=== PATIENT | male | born 1945 | race Two or more races ===

== ENCOUNTER 2016-05-26 06:57 | Day surgery (SDC) | payer MEDICARE, OTHER ==
[2016-05-22 10:24] VITALS: BMI 39.0
[~2016-05-26 06:57] MED LIST: LACTATED RINGERS 1,000 ML IV ONE
[2016-05-26 07:18] VITALS: TEMP 96.6
[2016-05-26] MEDS ORDERED: LACTATED RINGERS 1,000 ML IV ONE ×2 (07:33)
[2016-05-26 07:34] LABS: Glucose,Whole Blood 143 mg/dL (75-99)
[2016-05-26] MEDS ORDERED: LIDOCAINE 1% INJ 10MG/ML (20 ML MDV) ONE (07:38)
[2016-05-26] MEDS ORDERED: PROPOFOL 10 MG/ML 20 ML VIAL IV ONE (07:38)
--- NOTE | 2016-05-26 07:56 | P.GSHP ---
History of Present Illness H&P Date: 05/26/16 Chief Complaint: Screening colonoscopy This a 70-year-old male referred from Soumya Aiken PA-C. He presents today for screening colonoscopy. His last colonoscopy was over 7 years ago. He states he had 2 colonic polyps that time. - Constitutional Constitutional: Reports as per HPI Past Medical History Past Medical History: Diabetes Mellitus, Eye Disorder, Hypertension, Osteoarthritis (OA) Additional Past Medical History / Comment(s): Has cataracts, arthritis in right foot, "damage to lung due to coughing fits 15-20 yrs ago" History of Any Multi-Drug Resistant Organisms: None Reported Additional Past Surgical History / Comment(s): Colonoscopy, wisdom teeth extraction. Past Anesthesia/Blood Transfusion Reactions: No Reported Reaction Past Psychological History: No Psychological Hx Reported Smoking Status: Never smoker Past Alcohol Use History: Rare Past Drug Use History: None Reported - Past Family History Mother Family Medical History: No Reported History Medications and Allergies Home Medications Medication Instructions Recorded Confirmed Type Aspirin [Adult Low Dose Aspirin EC] 81 mg PO DAILY 05/22/16 05/22/16 History Chlorthalidone 25 mg PO DAILY 05/22/16 05/22/16 History Cholecalciferol [Vitamin D3] 1,000 unit PO DAILY 05/22/16 05/22/16 History Cyanocobalamin (Vitamin B-12) 1,000 mcg PO DAILY 05/22/16 05/22/16 History [Vitamin B-12] Folic Acid 0.8 mg PO DAILY 05/22/16 05/22/16 History Insulin Glargine [Lantus] 45 unit SQ QAM 05/22/16 05/22/16 History Losartan [Cozaar] 50 mg PO DAILY 05/22/16 05/22/16 History Pravastatin Sodium [Pravachol] 20 mg PO DAILY 05/22/16 05/22/16 History Verapamil HCl [Verapamil ER] 240 mg PO DAILY 05/22/16 05/22/16 History metFORMIN HCL 2,000 mg PO BID 05/22/16 05/22/16 History Allergies Allergy/AdvReac Type Severity Reaction Status Date / Time lisinopril [From Zestril] Allergy Unknown Verified 05/22/16 10:08 oseltamivir [From Tamiflu] Allergy Unknown Verified 05/22/16 10:07 Surgical - Exam Vital Signs Pulse Resp BP Pulse Ox 93 18 168/90 96 05/26/16 07:12 05/26/16 07:12 05/26/16 07:12 05/26/16 07:12 - General well developed, no distress - Eyes PERRL - ENT normal pinna - Neck no masses - Respiratory normal expansion - Cardiovascular Rhythm: regular - Abdomen Abdomen: soft, non tender Results - Labs Abnormal Lab Results - Last 24 Hours (Table) 05/26/16 Range/Units 07:30 POC Glucose (mg/dL) 143 H (75-99) mg/dL Assessment and Plan Plan: We'll perform screening colonoscopy.
--- NOTE | 2016-05-26 08:08 | P.OP ---
Date of Procedure: 05/26/16 Preoperative Diagnosis: Screening colonoscopy Postoperative Diagnosis: Normal colon Procedure(s) Performed: Colonoscopy Anesthesia: MAC Surgeon: Tomas Cedillo Pathology: none sent Condition: stable Disposition: PACU Description of Procedure: PROCEDURE: The patient was placed on the endoscopy table in the lateral position. Digital rectal examination was performed which revealed no abnormalities. The prostate was symmetrical without nodules. Flexible colonoscope was then placed in the patient's anus and passed throughout the entire colon. The ileocecal valve was visualized. The cecum, ascending, transverse, descending and sigmoid colon were normal. The rectum was normal as well. There were no masses, polyps or diverticula noted in the entire colon. SUMMARY OF FINDINGS: Normal colonoscopy.
[2016-05-26 08:11] VITALS: RESP 16
[2016-05-26 08:24] VITALS: BP 137/87; PULSE 75
[2016-05-26 09:00] LABS: Glucose,Whole Blood 143 mg/dL (75-99)
== END 2016-05-26 09:06 | disposition home or self-care (01) ==
LOC: ORWHC2ENDO 06:57
PROVIDERS: ATTEND Surgery
DX: Z12.11 Encounter for screening for malignant neoplasm of colon (principal); Z86.010 Personal history of colon polyps; E11.9 Type 2 diabetes mellitus without complications; Z79.4 Long term (current) use of insulin; Z79.84 Long term (current) use of oral hypoglycemic drugs; I10 Essential (primary) hypertension; M19.90 Unspecified osteoarthritis, unspecified site; E78.5 Hyperlipidemia, unspecified; Z79.82 Long term (current) use of aspirin; Z79.899 Other long term (current) drug therapy; Z88.8 Allergy status to other drugs, medicaments and biological substances
CPT/HCPCS: J2001; J2704; G0105

== ENCOUNTER → 2017-10-19 | Outpatient (CLI) | payer MEDICARE, OTHER | END | disposition home or self-care (01) | LOC: LABPAT 11:15 | PROVIDERS: ATTEND Orthopaedic Surgery | DX: Z01.812 Encounter for preprocedural laboratory examination (principal) | CPT/HCPCS: 87070 ==

== ENCOUNTER → 2017-10-20 | Outpatient (CLI) | payer MEDICARE, OTHER ==
[~2017-10-20] MED LIST changes: -LACTATED RINGERS 1,000 ML IV ONE; +REGADENOSON 0.4 MG/5 ML SYRINGE IV ONE
--- NOTE | 2017-10-20 11:41 | NM ---
EXAMINATION TYPE: NM stress lexiscan cardiolite DATE OF EXAM: 10/20/2017 COMPARISON: NONE HISTORY: Abnormal EKG TECHNIQUE: After the intravenous administration of 10.7 mCi Tc 99m Sestamibi - Cardiolite resting SP ECT images acquired 45 minutes post injection. The patient received 0.4mg Lexiscan, 25.2 mCi Tc 99m Sestamibi - Stress images obtained [address] injection FINDINGS: Review of stress and rest SPECT images demonstrates decreased radio pharmaceutical uptake along the i nferior wall of left ventricle on stress as compared to rest images. Gated analysis shows normal wal l motion with an estimated left ventricular ejection fraction of 57 %. 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 A Yellow level critical message alert has been initiated for Kayla Lal DO via the [facility] Critical Results System on 10/20/2017 11:38 AM. This message alert has been sent to Kayla trevino DO via the preferences provided by the clinician for the receipt of Radiology Critical Findings. Message ID [id number].
--- NOTE | 2017-10-20 13:31 | EST ---
EXERCISE STRESS DATE OF SERVICE: 10/20/2017 AGE: 72 SEX: Male HT: 71" WT: 280 pounds PROTOCOL: Lexiscan Cardiolite STAGE: DURATION OF EXERCISE: HEART RATE REST: 87 BLOOD PRESSURE REST: 191/88 MAXIMUM HEART RATE ACHIEVED: 97 MAXIMUM BLOOD PRESSURE: 216/86 85% MPHR: 127 100% MPHR: 149 METS: INDICATIONS: Chest pain. CLINICAL INFORMATION: STRESS DATA: Pretesting physical examination showed a heart rate of 87, pressure is 191/88 mmHg. Baseline EKG showed sinus rhythm. Lexiscan 0.4 mg was given over 15 seconds per protocol. The max heart rate was 97 beats per minute and maximum pressure was 216/86 mmHg. Clinically the patient did not have any symptoms of chest pain or discomfort and the EKG did not show any significant ST or T wave abnormalities concerning for ischemia. CONCLUSION: 1. Nondiagnostic electrocardiogram stress testing in response to Lexiscan. 2. Please follow up on the Cardiolite portion on a separate report from the radiology department. MMODL / IJN: [id number] /
== END | disposition home or self-care (01) ==
LOC: RADNMMAIN 10-19 09:58
PROVIDERS: ATTEND Family Medicine
DX: R94.31 Abnormal electrocardiogram [ECG] [EKG] (principal)
CPT/HCPCS: 93017; 78452; A9500; J2785

== ENCOUNTER → 2017-11-01 | Outpatient (CLI) | payer MEDICARE, OTHER ==
[2017-11-01 11:57] LABS: HCT 43.9 % (39.0-53.0); HGB 14.6 gm/dL (13.0-17.5); MCH 29.1 pg (25.0-35.0); MCHC 33.2 g/dL (31.0-37.0); MCV 87.7 fL (80.0-100.0); Platelet Count 239 k/uL (150-450); RBC 5.01 m/uL (4.30-5.90); WBC 7.8 k/uL (3.8-10.6)
[2017-11-01 12:08] LABS: Anion Gap 9 mmol/L; Blood Urea Nitrogen 16 mg/dL (9-20); Carbon Dioxide 30 mmol/L (22-30); Chloride 101 mmol/L (98-107); Glucose 131 mg/dL (74-99); Magnesium 1.5 mg/dL (1.6-2.3); Potassium 4.3 mmol/L (3.5-5.1); Sodium 140 mmol/L (137-145)
== END | disposition home or self-care (01) ==
LOC: LABPAT 11:19
PROVIDERS: ATTEND Internal Medicine Interventional Cardiology
DX: Z01.812 Encounter for preprocedural laboratory examination (principal); E11.9 Type 2 diabetes mellitus without complications
CPT/HCPCS: 36415; 80051; 82565; 82947; 83735; 84520; 85027

== ENCOUNTER → 2017-12-06 | Outpatient (CLI) | payer MEDICARE, OTHER ==
[2017-12-06 12:17] LABS: HCT 43.6 % (39.0-53.0); HGB 14.8 gm/dL (13.0-17.5); MCH 29.7 pg (25.0-35.0); MCHC 33.9 g/dL (31.0-37.0); MCV 87.6 fL (80.0-100.0); Mean Platelet Volume 7.2; Platelet Count 227 k/uL (150-450); RBC 4.97 m/uL (4.30-5.90); RDW 12.8 % (11.5-15.5); WBC 7.4 k/uL (3.8-10.6)
[2017-12-06 12:50] LABS: Anion Gap 10 mmol/L; Blood Urea Nitrogen 10 mg/dL (9-20); Carbon Dioxide 30 mmol/L (22-30); Chloride 100 mmol/L (98-107); Glucose 158 mg/dL (74-99); Magnesium 1.4 mg/dL (1.6-2.3); Potassium 4.1 mmol/L (3.5-5.1); Sodium 140 mmol/L (137-145)
== END | disposition home or self-care (01) ==
LOC: LABPAT 10:53
PROVIDERS: ATTEND Internal Medicine Interventional Cardiology
DX: Z01.812 Encounter for preprocedural laboratory examination (principal)
CPT/HCPCS: 36415; 80051; 82565; 82947; 83735; 84520; 85027

== ENCOUNTER 2017-12-22 06:06 | Day surgery (SDC) | payer MEDICARE, OTHER ==
[2017-12-15 14:48] VITALS: BMI 39.7
[~2017-12-22 06:06] MED LIST changes: +ALPRAZolam 0.25 MG TAB PO PRN; +ASPIRIN 325 MG TAB PO ONE; +NITROGLYCERIN SL TABS 0.4 MG TAB SUBLINGUAL PRN; -REGADENOSON 0.4 MG/5 ML SYRINGE IV ONE; +SODIUM CHLORIDE 0.9% 1,000 ML in EMPTY BAG 1 BAG IV ONE
[2017-12-22 07:10] LABS: Glucose,Whole Blood 161 mg/dL (75-99)
[2017-12-22] MEDS ORDERED: SODIUM CHLORIDE 0.9% 1,000 ML IV ONE (07:18)
[2017-12-22] MEDS ORDERED: diphenhydrAMINE 50 MG/ML 1 ML VIAL ONE (10:06)
[2017-12-22] MEDS ORDERED: MIDAZOLAM 2 MG/2 ML VIAL ONE (10:06)
[2017-12-22] MEDS ORDERED: LIDOCAINE 1% INJ 10MG/ML (20 ML MDV) ONE (10:06)
[2017-12-22] MEDS ORDERED: VERAPAMIL 2.5 MG/ML 2 ML AMP ONE (10:06)
[2017-12-22] MEDS ORDERED: MIDAZOLAM 2 MG/2 ML VIAL IV ONE (10:56)
[2017-12-22] MEDS ORDERED: diphenhydrAMINE 50 MG/ML 1 ML VIAL IVP ONE (10:56)
[2017-12-22] MEDS ORDERED: LIDOCAINE 1% INJ 10MG/ML (20 ML MDV) SQ ONE (10:58)
[2017-12-22] MEDS ORDERED: HEPARIN SODIUM 1,000 UN/ML (10ML VL) ONE (11:02)
[2017-12-22] MEDS ORDERED: VERAPAMIL SYRINGE (5 MG/10 ML) INTRAARTER ONE (11:05)
[2017-12-22] MEDS ORDERED: BIVALIRUDIN 250 MG in SODIUM CHLORIDE 0.9% 50 ML IV ONE (11:24)
[2017-12-22] MEDS ORDERED: BIVALIRUDIN BOLUS 250 MG/50 ML IV ONE (11:24)
[2017-12-22] MEDS ORDERED: IOPAMIDOL-370 100ML BTL INJ ONE ×2 (11:26→11:51)
[2017-12-22] MEDS ORDERED: NITROGLYCERIN 1000MCG/10ML SYRINGE INTRACORON ONE (11:42)
[2017-12-22] MEDS ORDERED: TICAGRELOR 90 MG TAB ONE (11:47)
[2017-12-22] MEDS ORDERED: TICAGRELOR 90 MG TAB PO ONE (11:51)
[2017-12-22] MEDS ORDERED: ZOLPIDEM 5 MG TAB PO PRN (12:01)
[2017-12-22] MEDS ORDERED: ATROPINE SULFATE 0.1 MG/ML 10ML SYRINGE IV PRN (12:01)
[2017-12-22] MEDS ORDERED: RX INFO: IV CONTRAST WAS GIVEN 1 EACH MISC MISCELLANE PRN (12:01)
[2017-12-22] MEDS ORDERED: MAG HYDROX/AL HYDROX/SIMETH 30 ML CUP PO PRN (12:01)
[2017-12-22] MEDS ORDERED: NITROGLYCERIN SL TABS 0.4 MG TAB SUBLINGUAL PRN (12:01)
[2017-12-22] MEDS: SODIUM CHLORIDE 0.9% 1,000 ML IV SCH (15:46)
[2017-12-22 17:01] LABS: Glucose,Whole Blood 180 mg/dL (75-99)
--- NOTE | 2017-12-22 18:22 | CC ---
CARDIAC CATHETERIZATION REPORT DATE OF SERVICE: 12/22/2017. PROCEDURE: 1. Left heart catheterization and coronary angiography. 2. PTCA and stenting of mid circumflex coronary artery with a drug-eluting stent. PERFORMED BY: Dr. Osmar Agosto. SEDATION: Moderate conscious sedation time was 53 minutes. Patient was administered Versed Benadryl and his oxygen saturation, hemodynamics and EKG were monitored closely. CLINICAL INFORMATION: Mr. Vel Wyatt is a 72-year-old gentleman with a history of type 2 diabetes, hypertension, hyperlipidemia, and a recent abnormal stress test with inferior wall ischemia. He was advised coronary angiography after due discussion regarding risks, benefits, options and rationale. PROCEDURE NOTE: Under local anesthesia and strict aseptic precautions, a 6-Tristanian introducer was placed in the right radial artery. I used a 3.5 left Kellie and a 4.0 right Kellie 5-Tristanian catheters to perform coronary angiography. Subsequently, I checked LV pressures with a pigtail catheter but did not perform an LV-gram. Using a JL 3.5 using a guide catheter, I performed selective coronary angiography of the left coronary artery. I used a Whisper wire to cross the lesion. Wire was kept distally. Predilatation was performed using an 8 mm 2.25 caliber NC Trek balloon. Subsequently I deployed a 2.5 caliber 8 mm long Xience stent. The patient had an excellent angiographic result. He had no significant EKG changes and mild chest discomfort. Excellent angiographic result was achieved. He received Angiomax bolus and infusion as per protocol. He also received 180 mg of Brilinta. The sheath was taken out and TR band applied per protocol and he was sent to the room in a stable condition. The saturation of the fingers of the right hand was 94%. CARDIAC CATH FINDINGS: The left ventricle end-diastolic pressure was about 12 mmHg. There was no gradient across the aortic valve. CORONARY ANGIOGRAPHY FINDINGS: RIGHT CORONARY ARTERY: This is a large dominant vessel, has no significant disease in the proximal and midportion. There is moderate calcification. Distally bifurcates into PDA and PLV. The PLV and PDA are both small in caliber relatively. PDA is diffusely diseased with multiple 60-70 percent lesions throughout. However, the disease is diffuse and not focal and extensive. The PLV also has diffuse disease, but no stenosis of more than 50% is noted. The dominant RCA therefore has branch disease involving the branches and calcification. LEFT MAIN CORONARY ARTERY: Short patent vessel free of significant disease that bifurcates into LAD and circumflex. LEFT ANTERIOR DESCENDING CORONARY ARTERY: Good caliber vessel extends along the anterior wall, gives off a good-sized septal and diagonal branches. After the first diagonal branch, there is about a 40 to 45% calcified area of narrowing noted. In multiple projections, I looked at this and does not appear to be a critical lesion. There is moderate calcification but the lesion is no more than 45%. Distally the caliber of the vessel improves. It runs all the way to the apex and curves over the apex to supply the inferoapical portion of left ventricle. LEFT POSTERIOR CIRCUMFLEX CORONARY ARTERY: Technically, nondominant vessel. Gives off 2 obtuse marginal branches and after the second obtuse marginal, there is an eccentric 90% stenosis which continues distally and gives off a 3rd obtuse marginal and then the groove branch. The mid circumflex therefore has a 90% calcified lesion. Left ventriculogram was not performed. The left ventricle end-diastolic pressure was 8- 10 mmHg without any gradient across aortic valve. PCI was performed with a drug-eluting stent. A 2.5 caliber 8 mm Xience stent was deployed. Excellent angiographic result without complication was achieved. Results were discussed with the patient and family and he was sent to the room in a stable condition. MMODL / IJN: [id number] /
--- NOTE | 2017-12-22 18:23 | LTR ---
DATE OF SERVICE: 12/22/[address] Lal: Thank you for the opportunity to participate in the care of Mr. Wyatt. Please find enclosed my detailed report for records. This gentleman has a mid circumflex lesion which was stented with a drug-eluting stent. The diffuse disease in PDA branch of RCA will be treated medically. LAD has moderate noncritical disease. We will have to continue aggressive medical therapy with dual antiplatelet therapy as well. Thank you for your referral. Please call for questions. With kind personal regards, Sincerely yours, MMODL / IJN: [id number] /
[2017-12-22] MEDS: MAGNESIUM OXIDE 400 MG TAB PO SCH (20:04)
[2017-12-22] MEDS: METOPROLOL TARTRATE 25 MG TAB PO SCH (20:04)
[2017-12-22] MEDS ORDERED: ATORVASTATIN 80 MG TAB PO SCH (21:00)
[2017-12-22 21:12] LABS: Glucose,Whole Blood 243 mg/dL (75-99)
[2017-12-23] MEDS: SODIUM CHLORIDE 0.9% 1,000 ML IV SCH (00:53)
[2017-12-23 06:12] LABS: Glucose,Whole Blood 192 mg/dL (75-99)
[2017-12-23 06:46] LABS: Basophils % (A) 0 %; Eosinophils # (A) 0.2 k/uL (0-0.7); Eosinophils % (A) 2 %; HCT 38.7 % (39.0-53.0); HGB 13.1 gm/dL (13.0-17.5); Lymphocytes # (A) 1.9 k/uL (1.0-4.8); Lymphocytes % (A) 28 %; MCH 29.3 pg (25.0-35.0); MCHC 33.7 g/dL (31.0-37.0); MCV 86.7 fL (80.0-100.0); Mean Platelet Volume 6.8; Monocytes # (A) 0.3 k/uL (0-1.0); Monocytes % (A) 5 %; Neutrophils # (A) 4.3 k/uL (1.3-7.7); Neutrophils % (A) 63 %; Platelet Count 188 k/uL (150-450); RBC 4.46 m/uL (4.30-5.90); WBC 6.9 k/uL (3.8-10.6)
[2017-12-23 06:57] LABS: Anion Gap 7 mmol/L; Blood Urea Nitrogen 16 mg/dL (9-20); Calcium 8.5 mg/dL (8.4-10.2); Carbon Dioxide 29 mmol/L (22-30); Chloride 104 mmol/L (98-107); Glucose 172 mg/dL (74-99); Potassium 4.5 mmol/L (3.5-5.1); Sodium 140 mmol/L (137-145)
[2017-12-23 07:29] VITALS: BP 136/79; PULSE 69; RESP 16; TEMP 97.4
[2017-12-23] MEDS: METOPROLOL TARTRATE 25 MG TAB PO SCH (08:44)
[2017-12-23] MEDS: MAGNESIUM OXIDE 400 MG TAB PO SCH (08:45)
[2017-12-23] MEDS ORDERED: CHOLECALCIFEROL 1,000 UNIT TAB PO SCH (09:00)
[2017-12-23] MEDS ORDERED: FOLIC ACID 1 MG TAB PO SCH (09:00)
[2017-12-23] MEDS ORDERED: ASPIRIN 81 MG PO SCH (09:00)
[2017-12-23] MEDS ORDERED: CLOPIDOGREL 75 MG TAB PO SCH (09:00)
[2017-12-23] MEDS ORDERED: LOSARTAN 50 MG TAB PO SCH (09:00)
[2017-12-23] MEDS ORDERED: CHLORTHALIDONE 25 MG TAB PO SCH (09:00)
[2017-12-23] MEDS ORDERED: INSULIN DETEMIR 100 UNIT/ML 10 ML VIAL SQ SCH (09:00)
--- NOTE | 2017-12-23 14:17 | DS ---
DISCHARGE SUMMARY DATE OF ADMISSION: 12/22/2017 DATE OF DISCHARGE: 12/23/2017, DIAGNOSES: 1. Unstable angina. 2. Hypertension. 3. Hypercholesterolemia. 4. Type 2 diabetes mellitus. 5. Status post PCI of circumflex. Mr. Wyatt was brought into the hospital electively for cardiac catheterization because of abnormal stress test and significant risk factors that include diabetes, hypertension, hyperlipidemia. Cardiac cath revealed that he had diffuse disease in PDA branch of RCA for which I advised medical therapy but circumflex have significant stenosis, underwent stenting with excellent result. Postprocedure course is unremarkable. He is doing well without symptoms. Vitals are stable. S1, S2 heard normally. Lungs are clear. Abdomen and lower extremity exam unchanged. Right radial cath site is clean and dry with a good pulse. PLAN: Increase activity and discharge him. Discharge instructions regarding activity, diet and medications including dual antiplatelet therapy were given to the patient. He will see me on 12/29/2017. Discharge instructions regarding activity, diet and medications were given. MMODL / IJN: [id number] /
== END 2017-12-23 09:51 | disposition home or self-care (01) ==
LOC: CATHCVL 06:06 → 6SEL 11:52 → CATHCVL 12-23 09:51
PROVIDERS: ATTEND Internal Medicine Interventional Cardiology
DX: I25.110 Atherosclerotic heart disease of native coronary artery with unstable angina pectoris (principal); R00.1 Bradycardia, unspecified; I10 Essential (primary) hypertension; E78.00 Pure hypercholesterolemia, unspecified; E11.9 Type 2 diabetes mellitus without complications; R94.39 Abnormal result of other cardiovascular function study; M17.12 Unilateral primary osteoarthritis, left knee; Z82.49 Family history of ischemic heart disease and other diseases of the circulatory system; Z79.82 Long term (current) use of aspirin; Z79.4 Long term (current) use of insulin; Z79.899 Other long term (current) drug therapy; Z88.8 Allergy status to other drugs, medicaments and biological substances
CPT/HCPCS: 93458; 80048; 85025; C9600; C1769 ×2; C1887; C1725; C1894; C1874; J2250; J1200; J2001; J0583; J1644; Q9967

== ENCOUNTER → 2019-01-31 | Outpatient (CLI) | payer MEDICARE | END | disposition home or self-care (01) | LOC: LABPAT 14:25 | PROVIDERS: ATTEND Orthopaedic Surgery | DX: Z01.812 Encounter for preprocedural laboratory examination (principal) | CPT/HCPCS: 87070 ==

== ENCOUNTER 2019-02-14 08:49 | Day surgery (SDC) | payer MEDICARE ==
[2019-02-13 09:02] VITALS: BMI 38.3
--- NOTE | 2019-02-13 10:20 | HP ---
HISTORY AND PHYSICAL CHIEF COMPLAINT: Left knee pain. HISTORY OF PRESENT ILLNESS: Patient is a 73-year-old retired gentleman who presents with progressive left knee pain secondary to osteoarthrosis despite extensive conservative previous treatment. He has tried medications in addition to injections without much relief. He notes daily pain that limits him significantly. PAST MEDICAL HISTORY: Significant for coronary artery disease, hypertension, and type 2 diabetes. PAST SURGICAL HISTORY: Significant for cardiac stent placement. CURRENT MEDICATIONS: 1. Viagra. 2. Verapamil. 3. Pro statin. 4. Metformin. 5. Aspirin. He notes allergies to TAMIFLU and ZESTRIL. FAMILY HISTORY: Significant for cancer. SOCIAL HISTORY: Negative for current tobacco or alcohol use. 16 POINT REVIEW OF SYSTEMS: Otherwise reviewed and is noncontributory. PHYSICAL EXAMINATION: On examination, the patient is approximately 5 foot 11, 275 pounds of endomorphic habitus. HEENT: Exam is nonfocal. NECK: Supple. He has painless passive motion of the left hip. Straight leg raise is negative. Active motion left knee, -12 to 95 degrees of flexion. He is tender about the medial joint line. He has a mild effusion. Collaterals are stable, Mayo is negative, Shanna's is equivocal. He has genu varum alignment. His distal neurovascular exam appears intact in the left lower extremity. IMPRESSION: 1. Left knee severe medial patellofemoral compartment osteoarthrosis. 2. History of coronary artery disease. 3. Ljz-jgqyois-fuwqumqzh diabetes. 4. Increased body mass index. RECOMMENDATION: I talked to the patient at length regarding his condition along with treatment options. At this point, he is quite symptomatic and opts to proceed with surgery. Will plan to proceed with left total knee arthroplasty. Will institute DVT prophylaxis postoperatively. Risks and benefits were discussed at length in layman's terms. MMODL / IJN: [id number] /
[~2019-02-14 08:49] MED LIST changes: +ACETAMINOPHEN TAB 500 MG TAB PO ONE; -ALPRAZolam 0.25 MG TAB PO PRN; -ASPIRIN 325 MG TAB PO ONE; +DEXAMETHASONE SOD PHOSPHATE 10 MG/ML 1 ML VIAL IV ONE; +HYDROmorphone 0.5 MG/0.5 ML SYRINGE IVP PRN; +MELOXICAM 7.5 MG TAB PO ONE; +MIDAZOLAM 2 MG/2 ML VIAL IV PRN; -NITROGLYCERIN SL TABS 0.4 MG TAB SUBLINGUAL PRN; +ONDANSETRON 4 MG/2 ML VIAL IVP ONE; -SODIUM CHLORIDE 0.9% 1,000 ML in EMPTY BAG 1 BAG IV ONE; +TRANEXAMIC ACID 1,000 MG in SODIUM CHLORIDE 0.9% 100 ML IVPB ONE; +ceFAZolin 3 GM in SODIUM CHLORIDE 0.9% 100 ML IVPB ONE
[2019-02-14 09:55] LABS: Glucose,Whole Blood 183 mg/dL (75-99)
[2019-02-14] MEDS: LACTATED RINGERS 1,000 ML IV SCH (09:58)
[2019-02-14] MEDS ORDERED: LIDOCAINE 1% 20 ML VIAL (10MG/ML) FOR IV START INTRADERMA ONE (09:58)
[2019-02-14] MEDS ORDERED: ROPIVACAINE 246.25 MG, EPINEPHrine 0.5 MG, KETOROLAC 30 MG, cloNIDine HCL/PF 80 MCG, WA... MISCELLANE ONE ×5 (10:02)
[2019-02-14] MEDS ORDERED: MIDAZOLAM 2 MG/2 ML VIAL IV ONE (10:11)
[2019-02-14] MEDS ORDERED: fentaNYL (PF) 50 MCG/ML 2 ML AMP IV ONE (10:11)
[2019-02-14] MEDS ORDERED: diphenhydrAMINE 50 MG/ML 1 ML VIAL ONE (10:57)
[2019-02-14] MEDS ORDERED: TRANEXAMIC ACID 1,000 MG/10 ML VIAL ONE (10:57)
[2019-02-14] MEDS ORDERED: ePHEDrine SULFATE/0.9% NACL/PF 50 MG/5 ML SYRINGE IV ONE (10:57)
[2019-02-14] MEDS ORDERED: MIDAZOLAM 2 MG/2 ML VIAL ONE (10:57)
[2019-02-14] MEDS ORDERED: fentaNYL (PF) 50 MCG/ML 2 ML AMP ONE (10:57)
[2019-02-14] MEDS ORDERED: SODIUM CHLORIDE 0.9% 100 ML BAG ONE (10:57)
[2019-02-14] MEDS ORDERED: ROPIVACAINE 0.2%-NS ON-Q PUMP 1,090 MG, EMPTY PAIN BALL 1 EACH MISCELLANE PRN (10:58)
--- NOTE | 2019-02-14 11:01 | P.ANPRN ---
Procedure Note - Anesthesia - Nerve Block Performed Left Adductor Canal Infusion Time Out Performed: Yes Date of Procedure: 02/14/19 Procedure Start Time: 10:11 Procedure Stop Time: 10:30 Location of Patient: PreOp Indication: Acute Post-Operative Pain, Requested by Surgeon Specifically requested for management of pain by DrPancho: August Schwarz Sedation Type: Sedate with meaningful contact maintained Preparation: Sterile Prep Position: Supine Catheter Depth at Skin (cm): 7 Catheter: Indwelling Needle Types: Pajunk Needle Gauge: 18 Ultrasound used to visualize needle placement: Yes Ultrasound used to observe medication spread: Yes Injectate: 0.5% Ropivacaine (see comment for volume) (20 cc) Blood Aspirated: No Pain Paresthesia on Injection Noted: No Resistance on Injection: Normal Image Stored and Saved: Yes Events: Other (see comment) (First U/S machind did not provide a good image so a backup machine was used resulting in some delay.)
[2019-02-14] MEDS ORDERED: ceFAZolin 3,000 MG in SODIUM CHLORIDE 0.9% IRRIGATIO 3,000 ML IRRIGATION ONE (11:39)
[2019-02-14] MEDS ORDERED: LACTATED RINGERS 1,000 ML IV ONE (12:37)
[2019-02-14] MEDS ORDERED: ONDANSETRON 4 MG/2 ML VIAL IVP PRN (13:01)
[2019-02-14] MEDS ORDERED: ACETAMINOPHEN TAB 325 MG TAB PO PRN (13:01)
[2019-02-14] MEDS ORDERED: HYDROcodone/APAP 5-325MG 1 EACH TAB PO PRN ×2 (13:01)
[2019-02-14] MEDS ORDERED: traMADol 50 MG TAB PO PRN (13:01)
[2019-02-14] MEDS ORDERED: MAGNESIUM HYDROXIDE 2,400 MG/10 ML CUP PO PRN (13:01)
[2019-02-14] MEDS ORDERED: NALOXONE 0.4 MG/ML 1 ML VIAL IV PRN (13:01)
[2019-02-14] MEDS ORDERED: HYDROmorphone 0.5 MG/0.5 ML SYRINGE IVP PRN (13:01)
--- NOTE | 2019-02-14 13:29 | P.OP ---
Date of Procedure: 02/14/19 Preoperative Diagnosis: Left knee severe tricompartmental osteoarthrosis Postoperative Diagnosis: Same Procedure(s) Performed: Left total knee arthroplastycementedposterior stabilized Implants: Depuy Attune size 7 cemented femoral component, size 7 cemented tibial component, 9 mm articular surface, 38 mm cemented patellar component. This is a posterior stabilized implant. A 50 mm tibial stem was placed as well. Anesthesia: MAC, regional, local Surgeon: August Schwarz Tool Carrier #1: Mason Rajput Estimated Blood Loss (ml): 50 Pathology: other (Bone fragments) Condition: stable Disposition: PACU Indications for Procedure: The patient's a 73 year-old male who presents with progressive left knee pain secondary to osteoarthrosis despite conservative measures. A discussion of the risks and benefits of operative intervention versus continued conservative measures was made with patient. She opted to proceed with surgery. Operative risks to include infection, neurovascular injury, fracture, development of blood clots, possible component loosening, possible component failure and need for subsequent procedures was discussed. Informed consent was obtained. Operative Findings: As below Description of Procedure: The patient was brought to the operating room, and after induction of spinal anesthesia the left lower extremity was prepped and draped in a normal fashion. The tourniquet was inflated to 270 mm marker. A longitudinal incision extending 3 finger breaths above the superior pole of patella extending to the medial aspect the tibial tubercle was then made. The skin and subcutaneous tissues were divided sharply. Electrocautery was used for hemostasis. A medial parapatellar arthrotomy was performed. The medial soft tissues to include the superficial and deep portions of the medial collateral ligament were elevated subperiosteally. The patella was everted. A portion of the retropatellar fat pad was excised sharply. The anterior cruciate ligament was sacrificed. Blunt retractors were placed. A starting hole was made in the distal femur 1 cm anterior to the posterior cruciate ligament origin. An intramedullary femoral guide was then inserted planning on 5 valgus distal cut with 9 mm distal resection. The cutting block was pinned in place. The distal cut was then made. The posterior referencing sizing guide was utilized. I felt size 7 was most appropriate. 3 of external rotation was built into the system and verified off the trans-epicondylar axis and the posterior condyles. The cutting block was pinned in place. The anterior, posterior, and chamfer cuts then made. Bone fragments were removed. The intercondylar guide was placed and the notch cut was made with a sagittal saw. The bone block was removed in one fragment. The trial component was then placed. There is good anterior to posterior and medial to lateral fit. The distal peg holes were drilled. The trial component was removed. Attention was then paid towards preparing the proximal femur. An extra medullary guide was utilized in line with the tibial shaft and second metatarsal distally. I planned on 2 mm resection from the medial compartment. The cutting block was pinned in place. The proximal tibial cut was then made. The bone was removed in one fragment. The remnants of the medial and lateral menisci were excised at the capsular junction with electrocautery. The tibia sized most appropriately at size 7. The trial femoral and tibial components were placed along with a 9 mm articular surface. I was able to obtain full flexion and extension with internal and external rotation. After several flexion and extension cycles, the tibial rotation was marked with electrocautery line with the medial one third of the tibial tubercle. Attention was then paid towards preparing the patella. A patella reamer was utilized taking stem to 14 mm of bone stock. A good flush cut was made. The patella sized most appropriately 38 mm. The peg holes were drilled. The trial components placed. I had good patellofemoral tracking with no hands technique. The trial components were then removed. The tibia was prepared in the appropriate rotation with appropriate drill and keel punch. The posterior osteophytes were removed with a curved osteotome. The flexion and extension gaps were checked and felt to be symmetric at 9 mm. A trial components were then removed. The posterior soft tissues were injected with ropivacaine. The bony surfaces were prepared with pulsatile lavage and dried. The tibial component was then cemented place was fully seated. Excess cement was removed. The femoral component cemented place and was fully seated. Excess cement was removed. The trial 9 mm articular surface was placed and the knee was put in full extension. The patella component was cemented place. After the cement had sufficiently hardened, the knee was again taken through a range of motion. Again I was able to obtain full flexion and extension with varus and valgus stress. The trial 9 mm articular surface was removed and the final one inserted. This was fully seated. Care was taken to avoid any soft tissue interposition. Pulsatile lavage was again utilized. The medial parapatellar arthrotomy was closed with #2 Ethibond suture. The tourniquet was deflated with approximately 75 minutes total tourniquet time. Final hemostasis was obtained with the cautery. There was minimal bleeding therefore a deep drain was not placed. The subcutaneous tissues were reapproximated with interrupted 2-0 Vicryl sutures. The skin was reapproximated with 3-0 subcuticular strata fix suture. Skin tape and adhesive was applied. A sterile dressing was applied. The patient was awoken from sedation and transferred to recovery room in good condition. Blood loss was estimated at 50 mL. No complications were incurred. Sponge and needle counts were correct at the end of the case. Mike DAMON assisted during the major components of this case to include exposure, bone resection, implantation, and closure.
--- NOTE | 2019-02-14 14:01 | XR ---
EXAMINATION TYPE: XR knee limited LT DATE OF EXAM: 02/14/2019 CLINICAL HISTORY: Left knee pain and arthritis status post total knee replacement. TECHNIQUE: Portable AP and crosstable lateral views of the left knee are obtained immediately postop eratively. COMPARISON: None FINDINGS: Metallic hardware from total left knee arthroplasty is seen and appears satisfactory in al ignment and position. There is evidence of recent surgery with diffuse subcutaneous gas and soft tis eligio swelling extending laterally and superiorly. IMPRESSION: METALLIC HARDWARE FROM TOTAL LEFT KNEE ARTHROPLASTY IS SATISFACTORY IN ALIGNMENT.
[2019-02-14 14:21] LABS: Glucose,Whole Blood 209 mg/dL (75-99)
[2019-02-14] MEDS ORDERED: INSULIN ASPART (NovoLOG) 100 UNIT/ML VIAL SQ ONE (14:23)
[2019-02-14 18:31] LABS: Glucose,Whole Blood 316 mg/dL (75-99)
[2019-02-14 20:04] LABS: Glucose,Whole Blood 357 mg/dL (75-99)
[2019-02-14] MEDS: ceFAZolin 3 GM in SODIUM CHLORIDE 0.9% 100 ML IVPB SCH (20:14)
[2019-02-14] MEDS: INSULIN ASPART (NovoLOG) 100 UNIT/ML VIAL SQ SCH (20:14)
[2019-02-14] MEDS: MAGNESIUM OXIDE 400 MG TAB PO SCH (20:20)
[2019-02-14] MEDS: METOPROLOL TARTRATE 25 MG TAB PO SCH (20:21)
[2019-02-14] MEDS ORDERED: ATORVASTATIN 40 MG TAB PO SCH (21:00)
[2019-02-14] MEDS ORDERED: SENNOSIDES-DOCUSATE SODIUM 1 EACH TAB PO SCH (21:00)
[2019-02-15] MEDS: ceFAZolin 3 GM in SODIUM CHLORIDE 0.9% 100 ML IVPB SCH (02:00)
[2019-02-15 06:58] LABS: Glucose,Whole Blood 201 mg/dL (75-99)
[2019-02-15] MEDS ORDERED: INSULIN DETEMIR (LEVEMIR) 100 UNIT/ML SYR SQ SCH (07:00)
--- NOTE | 2019-02-15 07:16 | P.PN ---
Progress Note - Text 02/15 655am 73-year-old male status post total knee replacement by Dr. Schwarz. Patient has On-Q pump for postop pain control with a VAS of 3 solution running at 8 mL an hour. Plan to continue On-Q pump infusion
[2019-02-15] MEDS: LACTATED RINGERS 1,000 ML IV SCH (07:22)
[2019-02-15] MEDS ORDERED: metFORMIN 500 MG TAB PO SCH (07:30)
[2019-02-15] MEDS: METOPROLOL TARTRATE 25 MG TAB PO SCH (07:30)
[2019-02-15] MEDS: MAGNESIUM OXIDE 400 MG TAB PO SCH (07:31)
[2019-02-15 07:42] VITALS: BP 114/66; PULSE 68; RESP 16; TEMP 98
[2019-02-15 07:47] LABS: Basophils % (A) 0 %; Eosinophils % (A) 0 %; HCT 32.4 % (39.0-53.0); HGB 11.1 gm/dL (13.0-17.5); Lymphocytes # (A) 1.2 k/uL (1.0-4.8); Lymphocytes % (A) 12 %; MCH 30.8 pg (25.0-35.0); MCHC 34.2 g/dL (31.0-37.0); Monocytes # (A) 0.5 k/uL (0-1.0); Monocytes % (A) 5 %; Neutrophils # (A) 8.8 k/uL (1.3-7.7); Neutrophils % (A) 83 %; Platelet Count 228 k/uL (150-450); RDW 13.1 % (11.5-15.5); WBC 10.6 k/uL (3.8-10.6)
[2019-02-15] MEDS: INSULIN ASPART (NovoLOG) 100 UNIT/ML VIAL SQ SCH ×2 (08:01→12:04)
[2019-02-15] MEDS ORDERED: RIVAROXABAN 10 MG TAB PO SCH (09:00)
[2019-02-15] MEDS ORDERED: LOSARTAN 50 MG TAB PO SCH (09:00)
[2019-02-15] MEDS ORDERED: CHLORTHALIDONE 25 MG TAB PO SCH (09:00)
[2019-02-15] MEDS ORDERED: ASPIRIN 81 MG PO SCH (09:00)
--- NOTE | 2019-02-15 10:26 | P.PN ---
Subjective Progress Note Date: 02/15/19 Principal diagnosis: Status post left total knee arthroplasty Patient tolerated the bedside, he is resting comfortably. His done very well with therapy. His pain is well-controlled. Denies chest pain or shortness of breath. Objective - Vital Signs Vital signs: Vital Signs Temp 98.0 F 02/15/19 07:08 Pulse 68 02/15/19 07:08 Resp 16 02/15/19 07:08 BP 114/66 02/15/19 07:08 Pulse Ox 95 02/15/19 07:08 Intake & Output 02/14/19 02/15/19 02/15/19 18:59 06:59 18:59 Intake Total 1251 180 Output Total 50 Balance 1201 180 Weight 127.006 kg Intake: IV 1251 Oral 180 Output: Estimated Blood Loss 50 Other: Voiding Method Toilet # Voids 1 - Exam Left lower extremity: Incision is clean, dry, and intact. The exofin fusion tape is in good condition. There is minimal soft tissue swelling and ecchymosis surrounding the medial and lateral aspects of the incision. Calf is soft, no tenderness with palpation. Plantar flexion, dorsiflexion, EHL, FHL are intact. Sensory exam to light touch throughout the extremity is intact, dorsal pedis pulses 2+. - Labs CBC & Chem 7: 02/15/19 07:12 Labs: Abnormal Lab Results - Last 24 Hours (Table) 02/14/19 02/14/19 02/14/19 Range/Units 14:18 18:30 20:01 RBC (4.30-5.90) m/uL Hgb (13.0-17.5) gm/dL Hct (39.0-53.0) % Neutrophils # (1.3-7.7) k/uL POC Glucose (mg/dL) 209 H 316 H 357 H (75-99) mg/dL 02/15/19 02/15/19 Range/Units 06:56 07:12 RBC 3.60 L (4.30-5.90) m/uL Hgb 11.1 L (13.0-17.5) gm/dL Hct 32.4 L (39.0-53.0) % Neutrophils # 8.8 H (1.3-7.7) k/uL POC Glucose (mg/dL) 201 H (75-99) mg/dL Assessment and Plan Plan: Assessment: Postoperative day #1 status post left total knee arthroplasty Plan: Pain control, oral medication at discharge GI and DVT prophylaxis, Eliquis 2.5mg bid for 2 weeks Wound care instructions discussed Icing and elevating techniques discussed Home physical therapy and nursing after discharge Medical recommendations Plan for discharge home today Time with Patient: Less than 30
--- NOTE | 2019-02-15 10:27 | P.DS ---
Providers Date of admission: 02/14/2019 Expected date of discharge: 02/15/19 Attending physician: August Schwarz Primary care physician: Kayla Lal Hospital Course: Date of admission: 02/14/2019 Date of discharge: 02/15/2019 Admission diagnosis: Status post left total knee arthroplasty Discharge diagnosis: Same Attending physician: Dr. Schwarz Surgical procedures: Left total knee arthroplasty Brief history: Patient is a 73-year-old male with a history of progressive primary left knee osteoarthritis. At this point patient has failed conservative treatment measures and has opted to proceed with a elective left total knee arthroplasty. Hospital course: Details of patient's surgery can be found in operative report. Patient tolerated the procedure well and was subsequently transported to orthopedic floor. Patient's orthopeidc and medical care was provided daily. Patient had daily laboratory tests performed for evaluation of overall blood counts. Patient had daily physical therapy to include strengthening range of motion as well as education with walker ambulation. Patient had daily CPM usage as part of their physical therapy program. Patient was treated with Xarelto for their postoperative DVT prophylaxis during their inpatient stay. Patient was noted to have a relatively uneventful postoperative course. Patient reported satisfactory pain control with oral pain medications by postoperative day 0. Patient showed satisfactory progress with physical therapy. Patient moved steadily through the program and had no difficulty meeting the goals by postoperative day 1. Given patient's otherwise satisfactory course and having met physical therapy goals, plan is to discharge patient home on postoperative day 1. Discharge condition/disposition: Patient will be discharged home in stable condition. Discharge medications: Instructions are given on resumption of patient's normal daily medications per primary care recommendation, in addition patient will be prescribed Seldovia 5 mg/325 mg, Colace 100 mg, Eliquis 2.5mg. Discharge instructions: 1. Wound care and infection precautions, keep incision dry and covered while showering, no lotions, creams, moisturizers. No soaking, tubs, pools, hottubs. Do not scrub over the incision. 2. Weight-bear as tolerated with walker / cane until follow-up. 3. Ice and elevate when necessary. Do not exceed 20 minutes per hour with ice pack. 4. Utilize compression sleeve until seen at first follow up appointment. 5. Visiting nursing care. 6. Home physical therapy including home CPM. 7. Pain meds and anticoagulants per prescription. 8. Pain medication has potential to cause constipation. Increase oral fluid and fiber intake. Contact primary care provider if you have not had a bowel movement within 48 hours after discharge 9. No anti-inflammatory medication until discussed at first post operative visit, this including Motrin, Aleve, Mobic, Diclofenac. 10. Follow up in office at 2 weeks postop with Mike Rajput PA-C 11. Follow up with your primary care doctor 7-10 days after discharge. 12. Contact [facility] with any questions, . Procedures: Left total knee arthroplasty Patient Condition at Discharge: Good Plan - Discharge Summary Discharge Rx Participant: No New Discharge Prescriptions: New Docusate [Colace] 100 mg PO DAILY #30 capsule Apixaban [Eliquis] 2.5 mg PO BID #60 tab Hydrocodone/Acetaminophen [Seld[place] 5-325] 1 - 2 each PO Q6HR PRN #40 tab PRN Reason: Pain No Action Chlorthalidone 25 mg PO DAILY Cholecalciferol [Vitamin D3 (25 Mcg = 1000 Iu)] 1,000 unit PO HS Folic Acid 0.8 mg PO HS Cyanocobalamin (Vitamin B-12) [Vitamin B-12] 1,000 mcg PO HS Aspirin [Adult Low Dose Aspirin EC] 81 mg PO DAILY Sildenafil Citrate [Viagra] 50 mg PO DIRECTED PRN PRN Reason: E.D. metFORMIN HCL ER [Glucophage Xr] 2,000 mg PO QAM Metoprolol Tartrate 25 mg PO BID Magnesium Oxide 200 mg PO BID Insulin Glargine,Hum.rec.anlog [Lantus Solostar] 45 units SQ QAM Atorvastatin [Lipitor] 40 mg PO HS Losartan Potassium [Cozaar] 50 mg PO QAM Discharge Medication List Aspirin [Adult Low Dose Aspirin EC] 81 mg PO DAILY 05/22/16 [History] Chlorthalidone 25 mg PO DAILY 05/22/16 [History] Cholecalciferol [Vitamin D3 (25 Mcg = 1000 Iu)] 1,000 unit PO HS 05/22/16 [History] Cyanocobalamin (Vitamin B-12) [Vitamin B-12] 1,000 mcg PO HS 05/22/16 [History] Folic Acid 0.8 mg PO HS 05/22/16 [History] Sildenafil Citrate [Viagra] 50 mg PO DIRECTED PRN 10/14/17 [History] metFORMIN HCL ER [Glucophage Xr] 2,000 mg PO QAM 10/14/17 [History] Metoprolol Tartrate 25 mg PO BID 11/05/17 [History] Magnesium Oxide 200 mg PO BID 12/15/17 [History] Insulin Glargine,Hum.rec.anlog [Lantus Solostar] 45 units SQ QAM 07/26/18 [History] Atorvastatin [Lipitor] 40 mg PO HS 02/13/19 [History] Losartan Potassium [Cozaar] 50 mg PO QAM 02/13/19 [History] Apixaban [Eliquis] 2.5 mg PO BID #60 tab 02/15/19 [Rx] Docusate [Colace] 100 mg PO DAILY #30 capsule 02/15/19 [Rx] Hydrocodone/Acetaminophen [[place] 5-325] 1 - 2 each PO Q6HR PRN #40 tab 02/15/19 [Rx] Follow up Appointment(s)/Referral(s): Mason Rajput PAC [PHYSICIAN [employer]] - 03/01/19 3:10 pm Activity/Diet/Wound Care/Special Instructions: Home Care - [facility] - [phone] [facility] to contact you after discharge to set up delivery for [facility] - [phone] Orthopedic Discharge Instructions: 1. Wound care and infection precautions, keep incision dry and covered while showering, no lotions, creams, moisturizers. No soaking, pools, hot tubs. Do not scrub over incision. 2. Weight-bear as tolerated with walker / cane until follow-up. 3. Ice and elevate when necessary. Do not exceed 20 minutes per hour with ice pack. 4. Utilize compression sleeve until seen at first follow up appointment. 5. Pain meds and anticoagulants per prescription. 6. Pain medication has potential to cause constipation. Increase oral fluid and fiber intake. Contact primary care provider if you have not had a bowel movement within 48 hours after discharge. 7. No anti-inflammatory medication until discussed at first post operative visit, this including Motrin, Aleve, Mobic, Diclofenac. 8. Follow up in office at 2 weeks postop with Mike Rajput PA-C 9. Follow up with your primary care doctor 7-10 days after discharge. 10. Contact [facility] with any questions, . Discharge Disposition: HOME WITH HOME HEALTH SERVICES
[2019-02-15 11:37] LABS: Glucose,Whole Blood 231 mg/dL (75-99)
== END 2019-02-15 16:56 | disposition home health service (06) ==
LOC: OR 08:49 → 4SSUR 13:22 → OR 02-15 16:56
PROVIDERS: ATTEND Orthopaedic Surgery
DX: M17.12 Unilateral primary osteoarthritis, left knee (principal); I25.10 Atherosclerotic heart disease of native coronary artery without angina pectoris; I11.0 Hypertensive heart disease with heart failure; I50.9 Heart failure, unspecified; E78.2 Mixed hyperlipidemia; E11.9 Type 2 diabetes mellitus without complications; E66.01 Morbid (severe) obesity due to excess calories; Z68.39 Body mass index [BMI] 39.0-39.9, adult; Z88.8 Allergy status to other drugs, medicaments and biological substances; Z88.3 Allergy status to other anti-infective agents; Z95.5 Presence of coronary angioplasty implant and graft; Z79.82 Long term (current) use of aspirin; Z79.4 Long term (current) use of insulin; Z79.01 Long term (current) use of anticoagulants; Z79.899 Other long term (current) drug therapy
CPT/HCPCS: 64448; 76942; 85025; 88300; 73560; 27447; C1713; C1776; J2250; J0171; J1100; J0690 ×3; J2405; J3010; J1885; J2795 ×2; J0735; J1170

== ENCOUNTER → 2019-09-11 | Outpatient (CLI) | payer MEDICARE ==
[2019-09-11 16:26] VITALS: BMI 38.3
== END | disposition home or self-care (01) ==
LOC: DBWHC3 12:36
PROVIDERS: ATTEND Physician Assistant
DX: E11.65 Type 2 diabetes mellitus with hyperglycemia (principal)
CPT/HCPCS: G0108 ×3

== ENCOUNTER 2019-10-19 11:53 | Inpatient (IN) | payer MEDICARE ==
[2019-10-19] MEDS ORDERED: NITROGLYCERIN OINT 1 INCH/GM PACKET TOPICAL STA (12:11)
[2019-10-19] MEDS ORDERED: ASPIRIN 81 MG PO STA (12:11)
--- NOTE | 2019-10-19 12:15 | ED ---
General Adult HPI - General Chief complaint: Chest Pain Stated complaint: chest pain, abn ekg Time Seen by Provider: 10/19/19 12:00 Source: patient, RN notes reviewed, old records reviewed Mode of arrival: wheelchair Limitations: no limitations - History of Present Illness Initial comments: This is a 74-year-old male who presents emergency Department complaining of chest pain when he woke up this morning. Patient states he was in the chest the left of center. Patient states it was not reproducible with palpation or movement. Patient denied any increased shortness of breath or radiation of pain. Patient states he did have a stent placed 2 years ago. Patient denies any diaphoretic episodes. Patient denies any nausea. Patient denies lighthea dedness or dizziness. Patient denies any headache or any numbness weakness. Patient denies any recent fever chills or cough. Patient denies abdominal pain patient denies nausea vomiting diarrhea. - Related Data Home Medications Medication Instructions Recorded Confirmed Aspirin [Adult Low Dose Aspirin EC] 81 mg PO DAILY 05/22/16 10/19/19 Chlorthalidone 25 mg PO DAILY 05/22/16 10/19/19 Cyanocobalamin (Vitamin B-12) 1,000 mcg PO DAILY 05/22/16 10/19/19 [Vitamin B-12] Folic Acid 0.8 mg PO DAILY 05/22/16 10/19/19 Sildenafil Citrate [Viagra] 50 mg PO DAILY PRN 10/14/17 10/19/19 metFORMIN HCL ER [Glucophage Xr] 2,000 mg PO QAM 10/14/17 10/19/19 Metoprolol Tartrate 25 mg PO BID 11/05/17 10/19/19 Insulin Glargine,Hum.rec.anlog 70 units SQ QAM 07/26/18 10/19/19 [Lantus Solostar] Atorvastatin [Lipitor] 40 mg PO DAILY 02/13/19 10/19/19 Losartan Potassium [Cozaar] 50 mg PO QAM 02/13/19 10/19/19 Allergies Allergy/AdvReac Type Severity Reaction Status Date / Time lisinopril [From Zestril] Allergy Rash/Hives Verified 10/19/19 12:53 oseltamivir [From Tamiflu] AdvReac numbness Verified 10/19/19 12:53 left arm Review of Systems ROS Statement: Those systems with pertinent positive or pertinent negative responses have been documented in the HPI. ROS Other: All systems not noted in ROS Statement are negative. 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 lt knee Past Anesthesia/Blood Transfusion Reactions: No Reported Reaction Additional Past Anesthesia/Blood Transfusion Reaction / Comment(s): no hx blood transfusion Past Psychological History: No Psychological Hx Reported Smoking Status: Never smoker Past Alcohol Use History: Rare Past Drug Use History: None Reported - Past Family History Mother Family Medical History: No Reported History Father Family Medical History: Cancer Additional Family Medical History / Comment(s): lung CA General Exam - General Exam Comments Initial Comments: GENERAL: Patient is well-developed and well-nourished. Patient is nontoxic and well- hydrated and is in no acute distress. ENT: Neck is soft and supple. No significant lymphadenopathy is noted. Oropharynx is clear. Moist mucous membranes. Neck has full range of motion without eliciting any pain. There is no thyroid enlargement and no masses were felt. EYES: The sclera were anicteric and conjunctiva were pink and moist. Extraocular movements were intact and pupils were equal round and reactive to light. Eyelids were unremarkable. PULMONARY: Unlabored respirations. Good breath sounds bilaterally. No audible rales rhonchi or wheezing was noted. CARDIOVASCULAR: There is a regular rate and rhythm without any murmurs gallops or rubs. Femoral pulses are equal bilaterally ABDOMEN: Soft and nontender with normal bowel sounds. No palpable organomegaly was noted. There is no palpable pulsatile mass. SKIN: Skin is clear with no lesions or rashes and otherwise unremarkable. NEUROLOGIC: Patient is alert and oriented x3. Cranial nerves II through XII are grossly intact. Motor and sensory are also intact. Normal speech, volume and content. Symmetrical smile. Cerebellar exam grossly intact. MUSCULOSKELETAL: Normal extremities with adequate strength and full range of motion. No lower extremity swelling or edema. No calf tenderness. LYMPHATICS: No significant lymphadenopathy is noted PSYCHIATRIC: Normal psychiatric evaluation. Normal interpersonal interactions appears functionally intact in deals appropriately with others. No signs of depression. No signs of anxiety. No delusions. No hallucinations. Limitations: no limitations Course Vital Signs 10/19/19 10/19/19 10/19/19 11:54 12:01 12:13 Temperature 97.8 F Pulse Rate 78 70 Respiratory 18 19 18 Rate Blood Pressure 165/76 O2 Sat by Pulse 98 97 Oximetry 10/19/19 13:19 Temperature Pulse Rate 72 Respiratory 16 Rate Blood Pressure 122/64 O2 Sat by Pulse 97 Oximetry Medical Decision Making - Medical Decision Making EKG shows normal sinus rhythm at 66 bpm CO interval is 182 QRS is 90 QT intervals 42 QTC is 421. Patient has slight inversion of T waves and 3 and aVF Chest x-ray shows no acute abnormality. Patient's troponin was mildly elevated so I started the patient on heparin for unstable angina. I spoke with Dr. Montano he agreed to admit the patient admitted the patient I wrote admitting orders and consult cardiology continued heparin and aspirin and Nitropaste on the floor. - Lab Data Result diagrams: 10/19/19 12:19 10/19/19 12:19 Lab Results 10/19/19 10/19/19 10/19/19 Range/Units 12:19 12:19 12:19 WBC 8.5 (3.8-10.6) k/uL RBC 4.71 (4.30-5.90) m/uL Hgb 13.6 (13.0-17.5) gm/dL Hct 41.5 (39.0-53.0) % MCV 88.0 (80.0-100.0) fL MCH 28.8 (25.0-35.0) pg MCHC 32.7 (31.0-37.0) g/dL RDW 13.2 (11.5-15.5) % Plt Count 212 (150-450) k/uL Neutrophils % 74 % Lymphocytes % 18 % Monocytes % 4 % Eosinophils % 2 % Basophils % 1 % Neutrophils # 6.3 (1.3-7.7) k/uL Lymphocytes # 1.5 (1.0-4.8) k/uL Monocytes # 0.4 (0-1.0) k/uL Eosinophils # 0.2 (0-0.7) k/uL Basophils # 0.0 (0-0.2) k/uL PT 10.2 (9.0-12.0) sec INR 1.0 (<1.2) APTT 23.1 (22.0-30.0) sec Sodium 137 (137-145) mmol/L Potassium 4.2 (3.5-5.1) mmol/L Chloride 101 (98-107) mmol/L Carbon Dioxide 27 (22-30) mmol/L Anion Gap 9 mmol/L BUN 14 (9-20) mg/dL Creatinine 0.91 (0.66-1.25) mg/dL Est GFR (CKD-EPI)AfAm >90 (>60 ml/min/1.73 sqM) Est GFR (CKD-EPI)NonAf 83 (>60 ml/min/1.73 sqM) Glucose 273 H (74-99) mg/dL Calcium 9.1 (8.4-10.2) mg/dL Magnesium 1.5 L (1.6-2.3) mg/dL Total Bilirubin 1.3 (0.2-1.3) mg/dL AST 20 (17-59) U/L ALT 20 (4-49) U/L Alkaline Phosphatase 112 (38-126) U/L Troponin I (0.000-0.034) ng/mL Total Protein 6.5 (6.3-8.2) g/dL Albumin 3.8 (3.5-5.0) g/dL 10/19/19 Range/Units 12:19 WBC (3.8-10.6) k/uL RBC (4.30-5.90) m/uL Hgb (13.0-17.5) gm/dL Hct (39.0-53.0) % MCV (80.0-100.0) fL MCH (25.0-35.0) pg MCHC (31.0-37.0) g/dL RDW (11.5-15.5) % Plt Count (150-450) k/uL Neutrophils % % Lymphocytes % % Monocytes % % Eosinophils % % Basophils % % Neutrophils # (1.3-7.7) k/uL Lymphocytes # (1.0-4.8) k/uL Monocytes # (0-1.0) k/uL Eosinophils # (0-0.7) k/uL Basophils # (0-0.2) k/uL PT (9.0-12.0) sec INR (<1.2) APTT (22.0-30.0) sec Sodium (137-145) mmol/L Potassium (3.5-5.1) mmol/L Chloride (98-107) mmol/L Carbon Dioxide (22-30) mmol/L Anion Gap mmol/L BUN (9-20) mg/dL Creatinine (0.66-1.25) mg/dL Est GFR (CKD-EPI)AfAm (>60 ml/min/1.73 sqM) Est GFR (CKD-EPI)NonAf (>60 ml/min/1.73 sqM) Glucose (74-99) mg/dL Calcium (8.4-10.2) mg/dL Magnesium (1.6-2.3) mg/dL Total Bilirubin (0.2-1.3) mg/dL AST (17-59) U/L ALT (4-49) U/L Alkaline Phosphatase (38-126) U/L Troponin I 0.077 H* (0.000-0.034) ng/mL Total Protein (6.3-8.2) g/dL Albumin (3.5-5.0) g/dL Critical Care Time Critical Care Time: Yes Total Critical Care Time: 35 Disposition Clinical Impression: Unstable angina pectoris Disposition: ADMITTED IP TO THIS HOSP Referrals: Soumya Aiken, PAC [REFERRING] - 1-2 days Time of Disposition: 13:24
--- NOTE | 2019-10-19 12:35 | XR ---
EXAMINATION TYPE: XR chest 2V DATE OF EXAM: 10/19/2019 COMPARISON: NONE HISTORY: Abnormal EKG. Chest pain. TECHNIQUE: Frontal and lateral views of the chest are obtained. FINDINGS: There is some chronic medical changes without suspicious focal air space opacity, pleural effusion, or pneumothorax seen. The cardiac silhouette size is within normal limits. Spine is straig htened with multilevel spurring. IMPRESSION: No acute cardiopulmonary process.
[2019-10-19 12:36] LABS: ALT 20 U/L (4-49); AST 20 U/L (17-59); African American GFR (CKD) >90 (>60 ml/min/1.73 sqM); Albumin 3.8 g/dL (3.5-5.0); Alkaline Phosphatase 112 U/L (38-126); Anion Gap 9 mmol/L; Blood Urea Nitrogen 14 mg/dL (9-20); Calcium 9.1 mg/dL (8.4-10.2); Carbon Dioxide 27 mmol/L (22-30); Chloride 101 mmol/L (98-107); Glucose 273 mg/dL (74-99); Magnesium 1.5 mg/dL (1.6-2.3); Non-African American GFR(CKD) 83 (>60 ml/min/1.73 sqM); Potassium 4.2 mmol/L (3.5-5.1); Sodium 137 mmol/L (137-145); Total Bilirubin 1.3 mg/dL (0.2-1.3); Total Protein 6.5 g/dL (6.3-8.2)
[2019-10-19 12:40] LABS: Partial Thromboplastin Time 23.1 sec (22.0-30.0); Prothrombin Time 10.2 sec (9.0-12.0)
[2019-10-19 12:44] LABS: Basophils % (A) 1 %; Eosinophils # (A) 0.2 k/uL (0-0.7); Eosinophils % (A) 2 %; HCT 41.5 % (39.0-53.0); HGB 13.6 gm/dL (13.0-17.5); Lymphocytes # (A) 1.5 k/uL (1.0-4.8); Lymphocytes % (A) 18 %; MCH 28.8 pg (25.0-35.0); MCHC 32.7 g/dL (31.0-37.0); Monocytes # (A) 0.4 k/uL (0-1.0); Monocytes % (A) 4 %; Neutrophils # (A) 6.3 k/uL (1.3-7.7); Neutrophils % (A) 74 %; Platelet Count 212 k/uL (150-450); RBC 4.71 m/uL (4.30-5.90); RDW 13.2 % (11.5-15.5); WBC 8.5 k/uL (3.8-10.6)
[2019-10-19] MEDS ORDERED: HEPARIN SODIUM,PORCINE 5,000 UNIT/ML 1 ML VIAL IV ONE (13:22)
[2019-10-19] MEDS ORDERED: NITROGLYCERIN SL TABS 0.4 MG TAB SUBLINGUAL PRN (13:24)
[2019-10-19] MEDS: HEPARIN SOD,PORK IN 0.45% NACL 25,000 UNIT in 0.45% NACL 1 250ML.BAG IV SCH (13:40)
[2019-10-19 16:39] LABS: Glucose,Whole Blood 104 mg/dL (75-99)
[2019-10-19] MEDS ORDERED: Magnesium Replacement Protocol 1 EACH MISC MISCELLANE PRN (17:17)
[2019-10-19] MEDS: NITROGLYCERIN OINT 1 INCH/GM PACKET TOPICAL SCH ×2 (17:34→23:57)
[2019-10-19] MEDS: INSULIN ASPART (NovoLOG) 100 UNIT/ML VIAL SQ SCH ×2 (17:42→20:37)
[2019-10-19 20:27] LABS: Glucose,Whole Blood 85 mg/dL (75-99)
[2019-10-19] MEDS: METOPROLOL TARTRATE 25 MG TAB PO SCH (20:28)
[2019-10-19] MEDS: ATORVASTATIN 80 MG TAB PO SCH ×2 (20:28→21:27)
[2019-10-19] MEDS: MAGNESIUM SULFATE-D5W PMX 1 GM in DEXTROSE/WATER 1 100ML.BAG IVPB SCH ×2 (20:29→21:30)
[2019-10-20 06:01] LABS: Magnesium 1.9 mg/dL (1.6-2.3)
[2019-10-20] MEDS: INSULIN DETEMIR (LEVEMIR) 100 UNIT/ML SYR SQ SCH (06:03)
[2019-10-20 06:13] LABS: Glucose,Whole Blood 109 mg/dL (75-99)
[2019-10-20] MEDS: INSULIN ASPART (NovoLOG) 100 UNIT/ML VIAL SQ SCH ×4 (06:15→20:55)
[2019-10-20] MEDS: NITROGLYCERIN OINT 1 INCH/GM PACKET TOPICAL SCH ×3 (06:17→18:00)
[2019-10-20] MEDS ORDERED: metFORMIN 500 MG TAB PO SCH (07:30)
[2019-10-20] MEDS: METOPROLOL TARTRATE 25 MG TAB PO SCH ×2 (08:35→20:25)
[2019-10-20] MEDS: LOSARTAN 50 MG TAB PO SCH (08:36)
[2019-10-20] MEDS: CHLORTHALIDONE 25 MG TAB PO SCH (08:36)
[2019-10-20] MEDS: ATORVASTATIN 80 MG TAB PO SCH (08:36)
[2019-10-20] MEDS ORDERED: FOLIC ACID 1 MG TAB PO SCH (09:00)
[2019-10-20] MEDS ORDERED: ATORVASTATIN 80 MG TAB PO SCH (09:00)
[2019-10-20] MEDS ORDERED: CYANOCOBALAMIN 500 MCG TAB PO SCH (09:00)
[2019-10-20] MEDS ORDERED: ASPIRIN 325 MG TAB PO SCH (09:00)
[2019-10-20] MEDS: HEPARIN SOD,PORK IN 0.45% NACL 25,000 UNIT in 0.45% NACL 1 250ML.BAG IV SCH (09:12)
--- NOTE | 2019-10-20 09:47 | P.CRDCN ---
History of Present Illness Consult date: 10/20/19 History of present illness: CHIEF COMPLAINT: Chest pain HISTORY OF PRESENT ILLNESS: 74-year-old male with a past medical history significant for coronary artery disease who presented to the emergency room with a chief complaint of chest pain. Patient states he began having mid/left chest pain yesterday around noon. The pain did not radiate. He denied palpitations. Patient denied shortness of breath. He went to his primary care physician's office who then referred him to the hospital. Patient does have a history of a cardiac cath performed by Dr. Agotso in December 2017 with a drug-eluting stent placed to the mid circumflex. Patient was also found to have moderate disease of the LAD and disease of the RCA which was decided to be treated medically. The patient states he no longer follows with [facility] and now sees Dr. Keli Pete. He states he has not had an echocardiogram performed recently to his knowledge. The patient was placed on IV heparin drip in the emergency room. DIAGNOSTICS: EKG reviewed by Dr. Valera reveals T wave inversion in lead V3, V4, and V6 Chest xray negative for an acute cardiopulmonary process Laboratory data: WBC 8.5. Hemoglobin 13.6. Platelet count 212. Sodium 137. Potassium 4.2. BUN 14. Creatinine 0.91. Magnesium 1.9. Troponin 0.077, 0.245, 0.372. Current home cardiac medications include metoprolol 25 mg twice a day, Cozaar 50 mg daily, Lipitor 40 mg by mouth daily, chlorthalidone 25 mg daily, and aspirin 81 mg daily REVIEW OF SYSTEMS: CONSTITUTIONAL: Denies fever or chills. HEENT: Denies blurred vision, vision changes, or eye pain. Denies hemoptysis CARDIOVASCULAR: Patient reports having chest pain yesterday. RESPIRATORY: No shortness of breath. GASTROINTESTINAL: Denies abdominal pain. Denies nausea or vomiting. HEMATOLOGIC: Denies bleeding disorders. GENITOURINARY: Denies any blood in urine. SKIN: Denies pruitis. Denies rash. PHYSICAL EXAM: VITAL SIGNS: Reviewed. GENERAL: Well-developed in no acute distress. HEENT: Head is normocephalic. Pupils are equal, round. Sclerae anicteric. Mucous membranes of the mouth are moist. Neck supple. No JVD or thyromegaly LUNGS: Respirations even and unlabored. Lungs essentially clear to auscultation bilaterally. HEART: Regular rate and rhythm. S1 and S2 heard. ABDOMEN: Soft. Nontender. EXTREMITIES: Normal range of motion. No clubbing or cyanosis. Peripheral pulses intact. No lower extremity edema NEUROLOGIC: Awake and alert. Oriented x 3. ASSESSMENT: 1. Non-ST elevated [place] 2. History of coronary artery disease with previous drug-eluting stent to the mid circumflex, 2017 PLAN: -Continue current medical regimen -NPO -Obtain records from Dr. Pete -Continue IV heparin -Obtain echocardiogram - to discuss case with Dr. Agosto and will make a decision regarding possible cardiac cath Nurse practitioner note has been reviewed by physician. Signing provider agrees with the documented findings, assessment, and plan of care. 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 heart stent 2017 Past Anesthesia/Blood Transfusion Reactions: No Reported Reaction Additional Past Anesthesia/Blood Transfusion Reaction / Comment(s): no hx blood transfusion Past Psychological History: No Psychological Hx Reported Smoking Status: Never smoker Past Alcohol Use History: Rare Past Drug Use History: None Reported - Past Family History Mother Family Medical History: No Reported History Father Family Medical History: Cancer Additional Family Medical History / Comment(s): lung CA Medications and Allergies Home Medications Medication Instructions Recorded Confirmed Type Aspirin [Adult Low Dose Aspirin EC] 81 mg PO DAILY 05/22/16 10/19/19 History Chlorthalidone 25 mg PO DAILY 05/22/16 10/19/19 History Cyanocobalamin (Vitamin B-12) 1,000 mcg PO DAILY 05/22/16 10/19/19 History [Vitamin B-12] Folic Acid 0.8 mg PO DAILY 05/22/16 10/19/19 History Sildenafil Citrate [Viagra] 50 mg PO DAILY PRN 10/14/17 10/19/19 History metFORMIN HCL ER [Glucophage Xr] 2,000 mg PO QAM 10/14/17 10/19/19 History Metoprolol Tartrate 25 mg PO BID 11/05/17 10/19/19 History Insulin Glargine,Hum.rec.anlog 70 units SQ QAM 07/26/18 10/19/19 History [Lantus Solostar] Atorvastatin [Lipitor] 40 mg PO DAILY 02/13/19 10/19/19 History Losartan Potassium [Cozaar] 50 mg PO QAM 02/13/19 10/19/19 History Allergies Allergy/AdvReac Type Severity Reaction Status Date / Time lisinopril [From Zestril] Allergy Rash/Hives Verified 10/19/19 12:53 oseltamivir [From Tamiflu] AdvReac numbness Verified 10/19/19 12:53 left arm Physical Exam Vitals: Vital Signs Temp Pulse Pulse Resp BP BP Pulse Ox 10/20/19 08:15 98.2 F 76 18 110/55 93 L 10/20/19 03:15 98.1 F 59 L 18 118/67 94 L 10/19/19 23:40 98.7 F 83 18 133/65 94 L 10/19/19 19:56 98.1 F 69 18 124/66 95 10/19/19 14:30 97.8 F 60 18 127/77 95 10/19/19 13:19 72 16 122/64 97 10/19/19 12:13 70 18 97 10/19/19 12:01 19 10/19/19 11:54 97.8 F 78 18 165/76 98 Intake and Output 10/19/19 10/20/19 10/20/19 22:59 06:59 14:59 Intake Total 327.667 104.424 50.538 Balance 327.667 104.424 50.538 Intake: Intake, IV Titration 87.667 104.424 50.538 Amount Heparin Sod,Pork in 0.45% 87.667 104.424 50.538 NaCl 25,000 unit In 0.45 % NaCl 1 250ml.bag @ 8.2 UNITS/KG/HR 10.043 mls/hr IV .Q24H [facility] Rx#: [id number] Oral 240 Other: Voiding Method Toilet Toilet # Voids 1 Weight 120.8 kg Results 10/19/19 12:19 10/19/19 12:19 Cardiac Enzymes 10/19/19 10/19/19 10/19/19 Range/Units 12:19 12:19 15:01 AST 20 (17-59) U/L Troponin I 0.077 H* 0.245 H* (0.000-0.034) ng/mL 10/19/19 Range/Units 18:28 AST (17-59) U/L Troponin I 0.372 H* (0.000-0.034) ng/mL Coagulation 10/19/19 10/19/19 10/19/19 Range/Units 12:19 15:01 21:43 PT 10.2 (9.0-12.0) sec APTT 23.1 41.8 H 32.5 H (22.0-30.0) sec 10/20/19 Range/Units 05:18 PT (9.0-12.0) sec APTT 39.8 H (22.0-30.0) sec Lipids 10/20/19 Range/Units 05:18 Triglycerides 77 (<150) mg/dL Cholesterol 74 (<200) mg/dL HDL Cholesterol 28 L (40-60) mg/dL CBC 10/19/19 Range/Units 12:19 WBC 8.5 (3.8-10.6) k/uL RBC 4.71 (4.30-5.90) m/uL Hgb 13.6 (13.0-17.5) gm/dL Hct 41.5 (39.0-53.0) % Plt Count 212 (150-450) k/uL Comprehensive Metabolic Panel 10/19/19 Range/Units 12:19 Sodium 137 (137-145) mmol/L Potassium 4.2 (3.5-5.1) mmol/L Chloride 101 (98-107) mmol/L Carbon Dioxide 27 (22-30) mmol/L BUN 14 (9-20) mg/dL Creatinine 0.91 (0.66-1.25) mg/dL Glucose 273 H (74-99) mg/dL Calcium 9.1 (8.4-10.2) mg/dL AST 20 (17-59) U/L ALT 20 (4-49) U/L Alkaline Phosphatase 112 (38-126) U/L Total Protein 6.5 (6.3-8.2) g/dL Albumin 3.8 (3.5-5.0) g/dL Current Medications Generic Name Dose Route Start Last Admin Trade Name Freq PRN Reason Stop Dose Admin Aspirin 325 mg 10/20/19 09:00 10/20/19 08:35 Aspirin PO 325 mg DAILY [facility] Administration Atorvastatin Calcium 80 mg 10/20/19 09:00 10/20/19 08:36 Lipitor PO 80 mg DAILY [facility] Administration Chlorthalidone 25 mg 10/20/19 09:00 10/20/19 08:36 [place] PO 25 mg DAILY [facility] Administration Cyanocobalamin 1,000 mcg 10/20/19 21:00 Vitamin B-12 PO HS [facility] Folic Acid 1 mg 10/20/19 21:00 Folic Acid PO HS [facility] Heparin Sodium/Sodium Chloride 250 mls @ 10.043 mls/hr 10/19/19 13:30 10/20/19 09:12 25,000 unit/ Sodium Chloride IV 13.17 units/kg/hr .Q24H [facility] 16.129 mls/hr Administration Protocol 8.2 UNITS/KG/HR Insulin Aspart 0 unit 10/19/19 17:30 10/20/19 06:15 Novolog SQ Not Given ACHS [facility] Protocol Insulin Detemir 50 unit 10/20/19 07:00 10/20/19 06:03 Levemir SQ Not Given QAM@0700 [facility] Losartan Potassium 50 mg 10/20/19 09:00 10/20/19 08:36 Cozaar PO 50 mg QAM [facility] Administration Metformin HCl 1,000 mg 10/20/19 07:30 10/20/19 06:03 Glucophage PO Not Given BID-W/MEALS [facility] Metoprolol Tartrate 25 mg 10/19/19 21:00 10/20/19 08:35 Lopressor PO 25 mg BID [facility] Administration Miscellaneous Information 1 each 10/19/19 17:17 Magnesium Per Protocol MISCELLANE DAILY PRN Per Protocol Protocol Nitroglycerin 0.4 mg 10/19/19 13:24 Nitrostat SUBLINGUAL Q5M PRN Chest Pain Nitroglycerin 1 inch 10/19/19 18:00 10/20/19 06:17 Nitro-Bid Oint TOPICAL 1 inch Q6HR [facility] Administration Intake and Output 10/19/19 10/20/19 10/20/19 22:59 06:59 14:59 Intake Total 327.667 104.424 50.538 Balance 327.667 104.424 50.538 Intake: Intake, IV Titration 87.667 104.424 50.538 Amount Heparin Sod,Pork in 0.45% 87.667 104.424 50.538 NaCl 25,000 unit In 0.45 % NaCl 1 250ml.bag @ 8.2 UNITS/KG/HR 10.043 mls/hr IV .Q24H [facility] Rx#: [id number] Oral 240 Other: Voiding Method Toilet Toilet # Voids 1 Weight 120.8 kg 10/19/19 12:19 10/19/19 12:19
[2019-10-20] MEDS ORDERED: HEPARIN SODIUM 1,000 UN/ML (10ML VL) ONE (10:57)
[2019-10-20] MEDS ORDERED: LIDOCAINE 1% INJ 10MG/ML (20 ML MDV) ONE (10:57)
[2019-10-20] MEDS ORDERED: VERAPAMIL 2.5 MG/ML 2 ML AMP ONE (10:57)
--- NOTE | 2019-10-20 11:00 | ECHOF ---
Referral Reason:chest pain MEASUREMENTS -------- HEIGHT: 177.8 cm WEIGHT: 120.7 kg BP: 118/67 RVIDd: 3.4 cm (< 3.3) IVSd: 1.4 cm (0.6 - 1.1) LVIDd: 4.2 cm (3.9 - 5.3) LVPWd: 1.4 cm (0.6 - 1.1) IVSs: 1.8 cm LVIDs: 2.5 cm LVPWs: 1.5 cm LA Diam: 3.2 cm (2.7 - 3.8) LAESV Index (A-L): 26.22 ml/m Ao Diam: 3.7 cm (2.0 - 3.7) AV Cusp: 2.4 cm (1.5 - 2.6) MV EXCURSION: 12.148 mm (> 18.000) MV EF SLOPE: 45 mm/s (70 - 150) EPSS: 0.9 cm MV E Andry: 0.74 m/s MV DecT: 395 ms MV A Andry: 1.07 m/s MV E/A Ratio: 0.70 FINDINGS -------- Sinus rhythm. This was a technically difficult study with suboptimal views. The left ventricular size is normal. There is moderate concentric left ventricular hypertrophy. O verall left ventricular systolic function is normal with, an EF between 60 - 65 %. The right ventricle is mildly enlarged. Normal LA size by volume 22+/-6 ml/m2. The right atrium is normal in size. Lumason used Interatrial and interventricular septum intact. The aortic valve is trileaflet and appears structurally normal. The mitral valve is normal. The tricuspid valve appears structurally normal. The pulmonic valve was not well visualized. The aortic root size is normal. IVC Not well visulized. There is no pericardial effusion. CONCLUSIONS -------- 1. The left ventricular size is normal. 2. There is moderate concentric left ventricular hypertrophy. 3. Overall left ventricular systolic function is normal with, an EF between 60 - 65 %. 4. The right ventricle is mildly enlarged. 5. Lumason used 6. There is no pericardial effusion. GARBAGE COLLECTOR DRIVER: Tania Jones [facility]
[2019-10-20] MEDS ORDERED: MIDAZOLAM 2 MG/2 ML VIAL IVP ONE (11:09)
[2019-10-20] MEDS ORDERED: LIDOCAINE 1% INJ 10MG/ML (20 ML MDV) SQ ONE (11:13)
[2019-10-20] MEDS ORDERED: IV FLUID CONTINUATION 900 ML IV ONE (11:14)
[2019-10-20] MEDS ORDERED: BIVALIRUDIN BOLUS 250 MG/50 ML IV ONE (11:20)
[2019-10-20] MEDS ORDERED: BIVALIRUDIN 250 MG in SODIUM CHLORIDE 0.9% 50 ML IV ONE ×2 (11:20→11:55)
[2019-10-20] MEDS ORDERED: TICAGRELOR 90 MG TAB ONE (11:26)
[2019-10-20] MEDS ORDERED: TICAGRELOR 90 MG TAB PO ONE (11:28)
[2019-10-20] MEDS ORDERED: IOPAMIDOL-370 100ML BTL INJ ONE ×2 (11:35→12:23)
[2019-10-20] MEDS ORDERED: niCARdipine 25 MG/10 ML VIAL ONE (11:41)
[2019-10-20] MEDS ORDERED: HYDROmorphone 1 MG/ML 1 ML SYRINGE ONE (11:47)
[2019-10-20] MEDS ORDERED: HYDROmorphone 1 MG/ML 1 ML SYRINGE IVP ONE (11:48)
[2019-10-20] MEDS ORDERED: NITROGLYCERIN 1000MCG/10ML SYRINGE INTRACORON ONE (11:55)
[2019-10-20] MEDS ORDERED: ZOLPIDEM 5 MG TAB PO PRN (12:25)
[2019-10-20] MEDS ORDERED: MAG HYDROX/AL HYDROX/SIMETH 30 ML CUP PO PRN (12:25)
[2019-10-20] MEDS ORDERED: RX INFO: IV CONTRAST WAS GIVEN 1 EACH MISC MISCELLANE PRN (12:25)
[2019-10-20] MEDS ORDERED: ATROPINE SULFATE 0.1 MG/ML 10ML SYRINGE IV PRN (12:25)
[2019-10-20] MEDS ORDERED: NITROGLYCERIN SL TABS 0.4 MG TAB SUBLINGUAL PRN (12:25)
[2019-10-20] MEDS ORDERED: SODIUM CHLORIDE 0.9% 1,000 ML IV SCH (12:30)
--- NOTE | 2019-10-20 14:51 | CC ---
CARDIAC CATHETERIZATION REPORT CARDIAC CATHETERIZATION AND PERCUTANEOUS CORONARY INTERVENTION: DATE OF SERVICE: 10/20/2019 PERFORMING PHYSICIAN: Nahum Valera MD. PROCEDURE PERFORMED: 1. Selective right and left coronary angiogram. 2. Atherectomy of the left anterior descending artery using the coronary orbital atherectomy. 3. Successful stenting of the mid left anterior descending artery using 3.0 x 23 mm Xience ZAYNAB which was post-dilated using 3.25 mm NC balloon with an excellent angiographic results. 4. Left heart catheterization. INDICATION: This is a 74-year-old gentleman who was seen in the past by Dr. Vince Agosto with known coronary artery disease and prior stenting of the left circumflex, presented to the hospital with chest discomfort and he ruled in for acute [id number] myocardial infarction. Because of that, a heart catheterization was advised. APPROACH: Right common femoral artery. COMPLICATION: None. LEVEL OF SEDATION: Moderate with sedation length of 73 minutes. PROCEDURE DESCRIPTION: After obtaining an informed consent, the patient was brought to the cardiac cathode builder. The right common femoral artery was cannulated using micropuncture technique, the micropuncture wire passed easily, then I placed a 6-Malian sheath initially 11 cm and subsequently 23 cm because of extreme tortuosity in the right iliac system. Selective right and left coronary angiogram performed using JL4 and JR4 catheters. Left heart catheterization was performed using a 6-Malian pigtail catheter. After that, I did intervene on the left anterior descending artery. Please see a separate paragraph for that. SELECTIVE CORONARY ANGIOGRAM: 1. The right coronary artery is a large caliber vessel and it is a dominant vessel. The RCA is extremely calcified. The RCA distally has intermediate lesion, appeared to be in the range of 50%. After that, bifurcates into PDA and PLV branches. The PDA branch has diffuse disease up to multiple areas of 80% to 90%. The PLV branch is also diffusely diseased up to about 80% in the midportion. Both the PDA and PLV are small caliber vessels. 2. The left main is calcified with mild eccentric lesion. Bifurcates into LCX and LAD. 3. The LCX is a large caliber vessel, it is a nondominant vessel. The proximal circumflex is angiographically normal. The mid circumflex is stented and the stent is patent. The circumflex in the midportion gives rise into first and second obtuse marginal branches, both appeared to be angiographically normal. The circumflex distally has a tight lesion, appeared to be in the range of 80% to 90%. 4. The proximal LAD appeared to have mild disease only. The mid LAD has eccentric calcified lesion, appeared to be in the range of 99.9%. The LAD after that has another tubular lesion, appeared to be in the range of 50%. The LAD reached and drop around the apex. 5. HEMODYNAMICS: The LVEDP was 16 mmHg without significant gradient across the aortic valve. 6. PCI of the LAD: Anticoagulation was initiated using Angiomax with bolus and drip per protocol. Subsequently I did engage the left main using JL-4 5 guide. I did wire the LAD using a whisper wire. Balloon angioplasty was attempted using 3.0 x 12 mm regular balloon and 2.5 mm x 12 mm noncompliant balloon and both balloon angioplasty were unsuccessful. Because of that, I decided to switch to atherectomy. My long whisper wire was exchanged over a Teleport catheter into the Viper Wire. After that, I did atherectomy of the LAD using 2 runs of low speed. I did after that balloon angioplasty using 3.0 x 12 mm balloon which was inflated under 20 atmospheres for 20 seconds. After that, I deployed a 3.0 x 23 mm Xience ZAYNAB where the stent was positioned under fluoroscopy guidance and deployed under 20 atmospheres for 20 seconds. I post-dilated the stent using 325 mm NC balloon. The following angiogram showed good angiographic results and the procedure was completed without any complication. CONCLUSION: 1. Acute [id number] myocardial infarction in this 74-year-old gentleman with coronary artery disease and prior stenting of the LCX. 2. Intermediate disease involving the right coronary artery, seems to be unchanged compared to before. 3. Severe disease involving the distal left circumflex. 4. Critical disease involving the LAD. 5. Successful stenting of the LAD with adjunctive use of atherectomy. POSTPROCEDURE MANAGEMENT: 1. Medical treatment. 2. Follow up with the patient. MMODL / IJN: [id number] /
[2019-10-20 15:07] VITALS: BMI 37.6
--- NOTE | 2019-10-20 15:41 | LTR ---
DATE OF SERVICE: 10/20/2019 RE: Vel Wyatt Dear Dr. Ramey; Mr. Vel Wyatt presented to the hospital with chest discomfort as you know, and he was ruled in for acute euw-RV-[id number] myocardial infarction. A heart catheterization was performed today and revealed critical disease involving the LAD which was stented with good angiographic results. I want to thank you for allowing us to participate in his care and please do not hesitate to call if you have any question or concern. Sincerely yours, MD STEPHIE Corona / LUIS E: [id number] /
[2019-10-20 17:39] LABS: Glucose,Whole Blood 101 mg/dL (75-99)
[2019-10-20] MEDS: CYANOCOBALAMIN 500 MCG TAB PO SCH (20:25)
[2019-10-20] MEDS: FOLIC ACID 1 MG TAB PO SCH (20:25)
[2019-10-20] MEDS: TICAGRELOR 90 MG TAB PO SCH (20:25)
[2019-10-20 20:51] LABS: Glucose,Whole Blood 221 mg/dL (75-99)
--- NOTE | 2019-10-20 22:47 | P.HPIM ---
History of Present Illness H&P Date: 10/20/19 Chief Complaint: chest pain Vel Wyatt is a 74 yo M with PMH of CAD s/p stenting by Dr. Agosto in 2018, T2DM, HTN who presented to the ED complaining of chest pain. He states he woke up with L sided and substernal sharp pain that lasted approximately 20 minutes. He denies any associated shortness of breath, palpitations, diaphoresis or radiation. He denies any prior episodes of chest pain over the past year or more. On presentation he was hypertensive, CXR clear, EKG with T wave inversions, trop 0.077, peaking at 0.372. Pt states his chest pain had mostly resolved since arriving at the hospital and has not recurred since he has been admitted and on heparin. Review of Systems All systems: negative Constitutional: Denies chills, Denies fever Eyes: denies blurred vision, denies pain Ears, nose, mouth and throat: Denies headache, Denies sore throat Cardiovascular: Reports chest pain, Denies shortness of breath Respiratory: Denies cough Gastrointestinal: Denies abdominal pain, Denies diarrhea, Denies nausea, Denies vomiting Musculoskeletal: Denies myalgias Integumentary: Denies pruritus, Denies rash Neurological: Denies numbness, Denies weakness Psychiatric: Denies anxiety, Denies depression Endocrine: Denies fatigue, Denies weight change Past Medical History Past Medical History: Diabetes Mellitus, Eye Disorder, Hypertension, Osteoarthritis (OA) Additional Past Medical History / Comment(s): Has cataracts christofer eyes, 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 heart stent 2018 Past Anesthesia/Blood Transfusion Reactions: No Reported Reaction Additional Past Anesthesia/Blood Transfusion Reaction / Comment(s): no hx blood transfusion Past Psychological History: No Psychological Hx Reported Smoking Status: Never smoker Past Alcohol Use History: Rare Past Drug Use History: None Reported - Past Family History Mother Family Medical History: No Reported History Father Family Medical History: Cancer Additional Family Medical History / Comment(s): lung CA Medications and Allergies Home Medications Medication Instructions Recorded Confirmed Type Aspirin [Adult Low Dose Aspirin EC] 81 mg PO DAILY 05/22/16 10/19/19 History Chlorthalidone 25 mg PO DAILY 05/22/16 10/19/19 History Cyanocobalamin (Vitamin B-12) 1,000 mcg PO DAILY 05/22/16 10/19/19 History [Vitamin B-12] Folic Acid 0.8 mg PO DAILY 05/22/16 10/19/19 History Sildenafil Citrate [Viagra] 50 mg PO DAILY PRN 10/14/17 10/19/19 History metFORMIN HCL ER [Glucophage Xr] 2,000 mg PO QAM 10/14/17 10/19/19 History Metoprolol Tartrate 25 mg PO BID 11/05/17 10/19/19 History Insulin Glargine,Hum.rec.anlog 70 units SQ QAM 07/26/18 10/19/19 History [Lantus Solostar] Atorvastatin [Lipitor] 40 mg PO DAILY 02/13/19 10/19/19 History Losartan Potassium [Cozaar] 50 mg PO QAM 02/13/19 10/19/19 History Allergies Allergy/AdvReac Type Severity Reaction Status Date / Time lisinopril [From Zestril] Allergy Rash/Hives Verified 10/19/19 12:53 oseltamivir [From Tamiflu] AdvReac numbness Verified 10/19/19 12:53 left arm Physical Exam Vitals: Vital Signs Temp Pulse Pulse Resp BP Pulse Ox 10/20/19 20:00 98.5 F 74 18 145/77 95 10/20/19 16:13 69 18 130/68 96 10/20/19 16:10 66 18 118/71 96 10/20/19 16:07 65 18 129/66 96 10/20/19 16:00 98.1 F 64 18 143/74 96 10/20/19 15:55 62 18 117/71 96 10/20/19 15:10 58 L 18 99/59 95 10/20/19 14:10 65 18 102/86 94 L 10/20/19 13:40 68 18 116/68 95 10/20/19 13:10 67 18 114/63 95 10/20/19 12:55 68 18 112/67 95 10/20/19 12:50 67 67 18 110/67 94 L 10/20/19 12:40 66 18 110/59 94 L 10/20/19 12:25 68 18 114/61 94 L 10/20/19 08:15 98.2 F 76 18 110/55 93 L 10/20/19 03:15 98.1 F 59 L 18 118/67 94 L 10/19/19 23:40 98.7 F 83 18 133/65 94 L Intake and Output 10/20/19 10/20/19 10/20/19 06:59 14:59 22:59 Intake Total 104.424 914.538 120 Output Total 325 Balance 104.424 914.538 -205 Intake: IV 660 Intake, IV Titration 104.424 254.538 Amount Heparin Sod,Pork in 0.45% 104.424 50.538 NaCl 25,000 unit In 0.45 % NaCl 1 250ml.bag @ 8.2 UNITS/KG/HR 10.043 mls/hr IV .Q24H [facility] Rx#: [id number] Sodium Chloride 0.9% 1, 204 000 ml @ 75 mls/hr IV . [id number] [facility] Rx#:[id number] Oral 120 Output: Urine 325 Other: Voiding Method Toilet # Voids 1 Weight 120.8 kg 120.8 kg General: well nourished, well developed, NAD. Vitals reviewed Eyes: PERRL, EOMI, conjunctiva normal HENT: normocephalic, mucus membranes moist Neck: supple, no JVD Lungs: normal respiratory effort, no wheezes or rales CV: Regular rate and rhythm, no murmur. Peripheral pulses 2+ Abdomen: soft, nondistended, no organomegaly Lymph: no cervical or axillary LAD Skin: warm and dry. Neuro: A&Ox3, normal mood and affect Results CBC & Chem 7: 10/19/19 12:19 10/19/19 12:19 Labs: Abnormal Lab Results - Last 24 Hours (Table) 10/20/19 10/20/19 10/20/19 Range/Units 05:18 05:18 06:12 APTT 39.8 H (22.0-30.0) sec POC Glucose (mg/dL) 109 H (75-99) mg/dL HDL Cholesterol 28 L (40-60) mg/dL 10/20/19 10/20/19 Range/Units 17:10 20:50 APTT (22.0-30.0) sec POC Glucose (mg/dL) 101 H 221 H (75-99) mg/dL HDL Cholesterol (40-60) mg/dL Thrombosis Risk Factor Assmnt - Choose All That Apply Any of the Below Risk Factors Present?: No Other Risk Factors: Yes Each Risk Factor Represents 2 Points: Age 61-74 years Other congenital or acquired thrombophilia - If yes, enter type in comment: No Thrombosis Risk Factor Assessment Total Risk Factor Score: 2 Thrombosis Risk Factor Assessment Level: Low Risk Assessment and Plan (1) NSTEMI (non-ST elevated myocardial infarction) Current Visit: Yes Status: Acute Code(s): I21.4 - NON-ST ELEVATION (NSTEMI) MYOCARDIAL INFARCTION SNOMED Code(s): 31076023 (2) Coronary artery disease Current Visit: Yes Status: Acute Code(s): I25.10 - ATHSCL HEART DISEASE OF [place] CORONARY ARTERY W/O ANG PCTRS SNOMED Code(s): 94277850 (3) Type 2 diabetes mellitus Current Visit: Yes Status: Acute Code(s): E11.9 - TYPE 2 DIABETES MELLITUS WITHOUT COMPLICATIONS SNOMED Code(s): 89400858 (4) Hypertension Current Visit: Yes Status: Acute Code(s): I10 - ESSENTIAL (PRIMARY) HYPERTENSION SNOMED Code(s): 76746298 Plan: 1. NSTEMI. CAD. Cardiology consult. IV heparin. Continue lipitor, ASA, lopressor, brilinta 2. T2DM. Continue levemir 50 U daily. Accucheck, sliding scale 3. HTN. Continue cozaar
[2019-10-21] MEDS: NITROGLYCERIN OINT 1 INCH/GM PACKET TOPICAL SCH ×4 (00:24→17:01)
[2019-10-21 06:10] LABS: Glucose,Whole Blood 216 mg/dL (75-99)
[2019-10-21] MEDS: INSULIN DETEMIR (LEVEMIR) 100 UNIT/ML SYR SQ SCH (06:58)
[2019-10-21] MEDS: INSULIN ASPART (NovoLOG) 100 UNIT/ML VIAL SQ SCH ×4 (06:58→20:24)
[2019-10-21 07:25] LABS: African American GFR (CKD) >90 (>60 ml/min/1.73 sqM); Non-African American GFR(CKD) 89 (>60 ml/min/1.73 sqM)
--- NOTE | 2019-10-21 08:02 | P.PN ---
Subjective Progress Note Date: 10/21/19 Principal diagnosis: Acute coronary syndrome This is a pleasant 74-year-old gentleman was coronary artery disease and prior stenting of the left circumflex was admitted to the hospital with chest discomfort and ruled in for acute non-ST me. He underwent a heart catheterization and was found to have critical disease involving the mid LAD. He underwent an atherectomy, balloon angioplasty, and stenting of the LAD with an excellent angiographic results. He was seen this morning. Today's 10/21/2019 with his asymptomatic from a cardiac vascular standpoint. The right groin is soft and nontender and without any bruises. He is on dual antiplatelet therapy as well as a statin. The echo revealed normal LV function. I would advise monitoring the patient for additional 24 hours in view of the high risk percutaneous coronary intervention was performed. Objective - Vital Signs Vital signs: Vital Signs Temp 98.0 F 10/21/19 04:33 Pulse 62 10/21/19 04:33 Resp 18 10/21/19 04:33 BP 149/80 10/21/19 04:33 Pulse Ox 96 10/21/19 04:33 Intake & Output 10/20/19 10/21/19 10/21/19 18:59 06:59 18:59 Intake Total 914.538 120 Output Total 675 Balance 914.538 -555 Weight 120.8 kg 122.1 kg Intake: IV 660 Intake, IV Titration 254.538 Amount Heparin Sod,Pork in 0.45% 50.538 NaCl 25,000 unit In 0.45 % NaCl 1 250ml.bag @ 8.2 UNITS/KG/HR 10.043 mls/hr IV .Q24H FRANCY Rx#: [id number] Sodium Chloride 0.9% 1, 204 000 ml @ 75 mls/hr IV . [id number] FRANCY Rx#:[id number] Oral 120 Output: Urine 675 Other: # Voids 1 - Constitutional General appearance: Present: no acute distress - Respiratory Respiratory: bilateral: CTA - Cardiovascular Rhythm: regular Heart sounds: normal: S1, S2 - Labs CBC & Chem 7: 10/19/19 12:19 10/21/19 06:34 Labs: Abnormal Lab Results - Last 24 Hours (Table) 10/20/19 10/20/19 10/21/19 Range/Units 17:10 20:50 06:09 POC Glucose (mg/dL) 101 H 221 H 216 H (75-99) mg/dL Assessment and Plan Assessment: Assessment #1 acute non-ST patient myocardial infarction #2 status post PCI of the LAD Plan #1 continue the current medical regimen #2 monitor the patient for additional 24 hours
[2019-10-21 08:54] VITALS: RESP 16
[2019-10-21] MEDS: METOPROLOL TARTRATE 25 MG TAB PO SCH ×2 (08:54→20:22)
[2019-10-21] MEDS: ASPIRIN 81 MG PO SCH (08:54)
[2019-10-21] MEDS: LOSARTAN 50 MG TAB PO SCH (08:54)
[2019-10-21] MEDS: ATORVASTATIN 80 MG TAB PO SCH (08:55)
[2019-10-21] MEDS: CHLORTHALIDONE 25 MG TAB PO SCH (08:55)
[2019-10-21] MEDS: TICAGRELOR 90 MG TAB PO SCH ×2 (08:55→20:23)
[2019-10-21 11:39] LABS: Glucose,Whole Blood 275 mg/dL (75-99)
--- NOTE | 2019-10-21 14:05 | P.PN ---
Subjective 74-year-old pleasant male admitted for non-ST elevation microinfarction patient underwent stenting to left circumflex patient is clinically doing well patient to normal ejection fraction patient probably will be discharged tomorrow patient is presently on Dilantin with the therapy statin and a beta darcy. Constitutional: Denied any fatigue denied any fever. Cardio vascular: denied any chest pain, palpitations Gastrointestinal denied any nausea vomiting Pulmonary: Denied any shortness of breath cough Neurologic denied any new focal deficits All inpatient medications were reviewed and appropriate changes in these medications as dictated in the interval history and assessment and plan. Objective - Vital Signs Vital signs: Vital Signs Temp 98.3 F 10/21/19 11:21 Pulse 60 10/21/19 11:21 Resp 16 10/21/19 11:21 BP 136/77 10/21/19 11:21 Pulse Ox 98 10/21/19 11:21 Intake & Output 10/20/19 10/21/19 10/21/19 18:59 06:59 18:59 Intake Total 914.538 120 Output Total 675 Balance 914.538 -555 Weight 120.8 kg 122.1 kg Intake: IV 660 Intake, IV Titration 254.538 Amount Heparin Sod,Pork in 0.45% 50.538 NaCl 25,000 unit In 0.45 % NaCl 1 250ml.bag @ 8.2 UNITS/KG/HR 10.043 mls/hr IV .Q24H FRANCY Rx#: [id number] Sodium Chloride 0.9% 1, 204 000 ml @ 75 mls/hr IV . [id number] FRANCY Rx#:[id number] Oral 120 Output: Urine 675 Other: # Voids 1 - Exam PHYSICAL EXAMINATION: GENERAL: The patient is alert and oriented x3, not in any acute distress. Well developed, well nourished. HEENT: Pupils are round and equally reacting to light. EOMI. No scleral icterus. No conjunctival pallor. Normocephalic, atraumatic. No pharyngeal erythema. No thyromegaly. CARDIOVASCULAR: S1 and S2 present. No murmurs, rubs, or gallops. PULMONARY: Chest is clear to auscultation, no wheezing or crackles. ABDOMEN: Soft, nontender, nondistended, normoactive bowel sounds. No palpable organomegaly. MUSCULOSKELETAL: No joint swelling or deformity. EXTREMITIES: No cyanosis, clubbing, or pedal edema. NEUROLOGICAL: Gross neurological examination did not reveal any focal deficits. SKIN: No rashes. - Labs CBC & Chem 7: 10/19/19 12:19 10/21/19 06:34 Labs: Abnormal Lab Results - Last 24 Hours (Table) 10/20/19 10/20/19 10/21/19 Range/Units 17:10 20:50 06:09 POC Glucose (mg/dL) 101 H 221 H 216 H (75-99) mg/dL 10/21/19 Range/Units 11:38 POC Glucose (mg/dL) 275 H (75-99) mg/dL Assessment and Plan Plan: -Acute non-ST elevation microinfarction: Patient is status post cardiac catheterization and stenting to circumflex and patient is an above-mentioned medications clinically doing well will be discharged tomorrow and a normal ejection fraction -Hypertension blood pressure is fairly well controlled continue present regimen -Hyperlipidemia -Type 2 diabetes mellitus patient blood sugars are bit elevated continue with present regimen, patient may benefit from a pre-meal insulin I'll discuss with the patient patient usually uses metformin as well at home. Probably can be resumed on this medication upon discharge
[2019-10-21 17:12] LABS: Glucose,Whole Blood 111 mg/dL (75-99)
[2019-10-21 20:12] LABS: Glucose,Whole Blood 208 mg/dL (75-99)
[2019-10-21] MEDS: CYANOCOBALAMIN 500 MCG TAB PO SCH (20:22)
[2019-10-21] MEDS: FOLIC ACID 1 MG TAB PO SCH (20:22)
[2019-10-22] MEDS: NITROGLYCERIN OINT 1 INCH/GM PACKET TOPICAL SCH ×2 (01:18→06:36)
[2019-10-22 06:03] LABS: Glucose,Whole Blood 170 mg/dL (75-99)
[2019-10-22] MEDS: INSULIN ASPART (NovoLOG) 100 UNIT/ML VIAL SQ SCH (06:35)
[2019-10-22] MEDS: INSULIN DETEMIR (LEVEMIR) 100 UNIT/ML SYR SQ SCH (06:35)
[2019-10-22 08:19] VITALS: BP 138/61; PULSE 75; TEMP 98.7
[2019-10-22] MEDS: TICAGRELOR 90 MG TAB PO SCH (08:19)
[2019-10-22] MEDS: CHLORTHALIDONE 25 MG TAB PO SCH (08:19)
[2019-10-22] MEDS: ASPIRIN 81 MG PO SCH (08:19)
[2019-10-22] MEDS: LOSARTAN 50 MG TAB PO SCH (08:19)
[2019-10-22] MEDS: ATORVASTATIN 80 MG TAB PO SCH (08:20)
[2019-10-22] MEDS: METOPROLOL TARTRATE 25 MG TAB PO SCH (08:20)
--- NOTE | 2019-10-22 08:31 | P.PN ---
Subjective Progress Note Date: 10/22/19 Principal diagnosis: Acute coronary syndrome This is a pleasant 74-year-old gentleman was coronary artery disease and prior stenting of the left circumflex was admitted to the hospital with chest discomfort and ruled in for acute non-ST me. He underwent a heart catheterization and was found to have critical disease involving the mid LAD. He underwent an atherectomy, balloon angioplasty, and stenting of the LAD with an excellent angiographic results. The patient was seen today October [id number]. He is asymptomatic from a perivascular standpoint overview. He is on dual antiplatelet therapy along with high intensity statin. The echo revealed normal left ventricular systolic function. From the cardiovascular standpoint overview, the patient can be discharged home. Objective - Vital Signs Vital signs: Vital Signs Temp 98.7 F 10/22/19 08:00 Pulse 75 10/22/19 08:00 Resp 16 10/22/19 08:00 BP 138/61 10/22/19 08:00 Pulse Ox 95 10/22/19 08:00 Intake & Output 10/21/19 10/22/19 10/22/19 18:59 06:59 18:59 Intake Total 480 Balance 480 Weight 118.8 kg Intake: Oral 480 Other: # Voids 2 1 - Constitutional General appearance: Present: no acute distress - Respiratory Respiratory: bilateral: CTA - Cardiovascular Rhythm: regular Heart sounds: normal: S1, S2 - Labs CBC & Chem 7: 10/19/19 12:19 10/21/19 06:34 Labs: Abnormal Lab Results - Last 24 Hours (Table) 10/21/19 10/21/19 10/21/19 Range/Units 11:38 17:11 20:06 POC Glucose (mg/dL) 275 H 111 H 208 H (75-99) mg/dL 10/22/19 Range/Units 06:02 POC Glucose (mg/dL) 170 H (75-99) mg/dL Assessment and Plan Assessment: Assessment #1 acute non-ST patient myocardial infarction #2 status post PCI of the LAD Plan #1 continue the current medical regimen #2 the patient can be discharged home
[2019-10-22 11:22] LABS: Glucose,Whole Blood 179 mg/dL (75-99)
--- NOTE | 2019-10-22 12:40 | P.DS ---
Providers Date of admission: 10/19/19 13:24 Attending physician: Dewayne Ramey MD Consults: 10/19/19 13:24 Consult Physician Urgent Consulting Provider: Cardiology Ashia Consult Reason/Comments: Unstable angina Do you want consulting provider notified?: Yes 10/20/19 12:25 Consult Physician Routine Consulting Provider: Shanna Ang Consult Reason/Comments: Post Interventional patient Do you want consulting provider notified?: Already Contacted Primary care physician: [facility] Course: 74-year-old pleasant male admitted for non-ST elevation myocardial infarction patient underwent stenting to left circumflex patient is clinically doing well patient to normal ejection fraction patient probably will be discharged tomorrow patient is presently on dual antiplatelet therapy statin and a beta darcy. 10/22/2019 Patient is clinically doing well is being discharged today PHYSICAL EXAMINATION: GENERAL: The patient is alert and oriented x3, not in any acute distress. Well developed, well nourished. HEENT: Pupils are round and equally reacting to light. EOMI. No scleral icterus. No conjunctival pallor. Normocephalic, atraumatic. No pharyngeal erythema. No thyromegaly. CARDIOVASCULAR: S1 and S2 present. No murmurs, rubs, or gallops. PULMONARY: Chest is clear to auscultation, no wheezing or crackles. ABDOMEN: Soft, nontender, nondistended, normoactive bowel sounds. No palpable organomegaly. MUSCULOSKELETAL: No joint swelling or deformity. EXTREMITIES: No cyanosis, clubbing, or pedal edema. NEUROLOGICAL: Gross neurological examination did not reveal any focal deficits. SKIN: No rashes. Personal chronic medical problems auscultation grossly please refer to the progress note from yesterday Plan - Discharge Summary Discharge Rx Participant: Yes New Discharge Prescriptions: New Ticagrelor [Brilinta] 90 mg PO BID #60 tab Atorvastatin [Lipitor] 80 mg PO DAILY #60 tab Nitroglycerin Sl Tabs [Nitrostat] 0.4 mg SUBLINGUAL Q5M PRN #30 tab PRN Reason: Chest Pain Continue Chlorthalidone 25 mg PO DAILY Folic Acid 0.8 mg PO DAILY Cyanocobalamin (Vitamin B-12) [Vitamin B-12] 1,000 mcg PO DAILY Aspirin [Adult Low Dose Aspirin EC] 81 mg PO DAILY metFORMIN HCL ER [Glucophage Xr] 2,000 mg PO QAM Metoprolol Tartrate 25 mg PO BID Insulin Glargine,Hum.rec.anlog [Lantus Solostar] 70 units SQ QAM Losartan Potassium [Cozaar] 50 mg PO QAM Discontinued Sildenafil Citrate [Viagra] 50 mg PO DAILY PRN PRN Reason: E.D. Atorvastatin [Lipitor] 40 mg PO DAILY Discharge Medication List Aspirin [Adult Low Dose Aspirin EC] 81 mg PO DAILY 05/22/16 [History] Chlorthalidone 25 mg PO DAILY 05/22/16 [History] Cyanocobalamin (Vitamin B-12) [Vitamin B-12] 1,000 mcg PO DAILY 05/22/16 [History] Folic Acid 0.8 mg PO DAILY 05/22/16 [History] metFORMIN HCL ER [Glucophage Xr] 2,000 mg PO QAM 10/14/17 [History] Metoprolol Tartrate 25 mg PO BID 11/05/17 [History] Insulin Glargine,Hum.rec.anlog [Lantus Solostar] 70 units SQ QAM 07/26/18 [History] Losartan Potassium [Cozaar] 50 mg PO QAM 02/13/19 [History] Atorvastatin [Lipitor] 80 mg PO DAILY #60 tab 10/22/19 [Rx] Nitroglycerin Sl Tabs [Nitrostat] 0.4 mg SUBLINGUAL Q5M PRN #30 tab 10/22/19 [Rx] Ticagrelor [Brilinta] 90 mg PO BID #60 tab 10/22/19 [Rx] Follow up Appointment(s)/Referral(s): Nahum Valera MD [STAFF PHYSICIAN] - 1 Week (Please make follow-up appt on Wednesday during business hours. ) Soumya Aiken PAC [REFERRING] - 3 Days (Please make follow-up appt on Wednesday during business hours.) Patient Instructions/Handouts: Angina (DC), Coronary Artery Disease (DC), Coronary Intravascular Stent Placement (DC) Activity/Diet/Wound Care/Special Instructions: Cleared by cardiology Follow up with patients own wool dyer Discharge Disposition: HOME SELF-CARE
== END 2019-10-22 12:41 | disposition home or self-care (01) | DRG 247 ==
LOC: EC 11:53 → 3SCARD 13:24
PROVIDERS: ADMIT Family Medicine; ATTEND Family Medicine
PROC: B2111ZZ Fluoroscopy of Multiple Coronary Arteries using Low Osmolar Contrast (ICD-10-PCS; principal; 2019-10-20 10:50)
PROC: 027034Z Dilation of Coronary Artery, One Artery with Drug-eluting Intraluminal Device, Percutaneous Approach (ICD-10-PCS; principal; 2019-10-20 10:50)
PROC: 4A023N7 Measurement of Cardiac Sampling and Pressure, Left Heart, Percutaneous Approach (ICD-10-PCS; principal; 2019-10-20 10:50)
PROC: 02C03ZZ Extirpation of Matter from Coronary Artery, One Artery, Percutaneous Approach (ICD-10-PCS; principal; 2019-10-20 10:50)
DX: I21.4 Non-ST elevation (NSTEMI) myocardial infarction (principal); E11.9 Type 2 diabetes mellitus without complications; I10 Essential (primary) hypertension; I25.10 Atherosclerotic heart disease of native coronary artery without angina pectoris; M19.071 Primary osteoarthritis, right ankle and foot; H26.9 Unspecified cataract; K08.499 Partial loss of teeth due to other specified cause, unspecified class; Z79.4 Long term (current) use of insulin; Z79.82 Long term (current) use of aspirin; Z79.899 Other long term (current) drug therapy; Z95.5 Presence of coronary angioplasty implant and graft; Z88.8 Allergy status to other drugs, medicaments and biological substances; Z96.60 Presence of unspecified orthopedic joint implant; Z80.1 Family history of malignant neoplasm of trachea, bronchus and lung
CPT/HCPCS: 36415; 71046; 80053; 80061; 82565; 83735; 84484; 85025; 85610; 85730; 93005; 93306; 93458; 96374; 99291

== ENCOUNTER 2020-02-14 00:37 | Emergency (ER) | payer MEDICARE ==
[2020-02-14 00:42] VITALS: RESP 18; TEMP 97.8
--- NOTE | 2020-02-14 00:52 | ED ---
Chest Pain HPI - General Chief Complaint: Chest Pain Stated Complaint: Chest Pain Time Seen by Provider: 02/14/20 00:50 Source: patient Mode of arrival: ambulatory Limitations: no limitations - History of Present Illness Initial Comments: This patient is a 74-year-old man who presents to be evaluated for left upper chest wall pain. He states that the pain is been going on constantly for approximately 2 days. He noted that it came on after he states that he tore some drywall down. The patient describes pain as moderate, aching, and worse if he presses on the area and with certain movements. He has not had any anginal symptoms, no dyspnea, diaphoresis, nausea or vomiting, palpitations or lightheadedness. No leg pain or swelling. MD Complaint: chest pain Onset/Timin -: days(s) Onset: other Pain Location: left chest Pain Radiation: none Severity: moderate Quality: aching Consistency: constant Improves With: rest Worsens With: palpation, movement Treatments Prior to Arrival: none - Related Data Home Medications Medication Instructions Recorded Confirmed Aspirin [Adult Low Dose Aspirin EC] 81 mg PO DAILY 05/22/16 10/19/19 Chlorthalidone 25 mg PO DAILY 05/22/16 10/19/19 Cyanocobalamin (Vitamin B-12) 1,000 mcg PO DAILY 05/22/16 10/19/19 [Vitamin B-12] Folic Acid 0.8 mg PO DAILY 05/22/16 10/19/19 metFORMIN HCL ER [Glucophage Xr] 2,000 mg PO QAM 10/14/17 10/19/19 Metoprolol Tartrate 25 mg PO BID 11/05/17 10/19/19 Insulin Glargine,Hum.rec.anlog 70 units SQ QAM 07/26/18 10/19/19 [Lantus Solostar] Losartan Potassium [Cozaar] 50 mg PO QAM 02/13/19 10/19/19 Previous Rx's Medication Instructions Recorded Atorvastatin [Lipitor] 80 mg PO DAILY #60 tab 10/22/19 Nitroglycerin Sl Tabs [Nitrostat] 0.4 mg SUBLINGUAL Q5M PRN #30 tab 10/22/19 Ticagrelor [Brilinta] 90 mg PO BID #60 tab 10/22/19 Allergies Allergy/AdvReac Type Severity Reaction Status Date / Time lisinopril [From Zestril] Allergy Rash/Hives Verified 02/14/20 00:42 oseltamivir [From Tamiflu] AdvReac numbness Verified 02/14/20 00:42 left arm Review of Systems ROS Statement: Those systems with pertinent positive or pertinent negative responses have been documented in the HPI. ROS Other: All systems not noted in ROS Statement are negative. Constitutional: Denies: fever, chills Respiratory: Denies: cough, dyspnea Cardiovascular: Reports: chest pain. Denies: palpitations, orthopnea, edema, syncope Gastrointestinal: Denies: abdominal pain, nausea, vomiting Genitourinary: Denies: dysuria, hematuria Musculoskeletal: Denies: back pain Skin: Denies: rash Neurological: Denies: headache, weakness, numbness EKG Findings - EKG Comments: EKG Findings:: Low voltage QRS complex - EKG Results: EKG: interpreted by ARANZA, sinus rhythm (With PAC, rate 86 bpm) - Blocks, [place], Hypertrophy, ST Abn: Repolarization changes or abnormalities: nonspecific abnormality, ST segment, and/or T wave, Q-T interval prolongation Past Medical History Past Medical History: Diabetes Mellitus, Eye Disorder, Hypertension, Myocardial Infarction (SD), Osteoarthritis (OA) Additional Past Medical History / Comment(s): Has cataracts christofer eyes, 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 heart stent 2017 Past Anesthesia/Blood Transfusion Reactions: No Reported Reaction Additional Past Anesthesia/Blood Transfusion Reaction / Comment(s): no hx blood transfusion Past Psychological History: No Psychological Hx Reported Smoking Status: Never smoker Past Alcohol Use History: Rare Past Drug Use History: None Reported - Past Family History Mother Family Medical History: No Reported History Father Family Medical History: Cancer Additional Family Medical History / Comment(s): lung CA General Exam Limitations: no limitations General appearance: alert, in no apparent distress Head exam: Present: atraumatic, normocephalic Eye exam: Present: normal appearance. Absent: scleral icterus, conjunctival injection Neck exam: Present: normal inspection Respiratory exam: Present: normal lung sounds bilaterally, chest wall tenderness. Absent: respiratory distress, wheezes, rales, rhonchi, stridor, accessory muscle use, decreased breath sounds Cardiovascular Exam: Present: regular rate, normal rhythm, normal heart sounds. Absent: systolic murmur, diastolic murmur, rubs, gallop GI/Abdominal exam: Present: soft. Absent: distended, tenderness, guarding, rebound, rigid, mass Extremities exam: Present: normal inspection, normal capillary refill. Absent: pedal edema, calf tenderness Back exam: Present: normal inspection. Absent: CVA tenderness (R), CVA tenderness (L) Neurological exam: Present: alert Skin exam: Present: warm, dry, intact, normal color. Absent: rash Course Vital Signs 02/14/20 00:40 Temperature 97.8 F Pulse Rate 86 Respiratory 18 Rate Blood Pressure 188/110 O2 Sat by Pulse 98 Oximetry Chest Pain [facility] Patient is 74-year-old man presenting with 2 days of chest pain after doing some work on [employer]. On the examination, palpation does reproduce the patient's chest pain along the left costal margin. Having said that, the patient does have history of requiring stenting previously and I did discuss admission for serial cardiac enzymes and telemetry monitoring, patient is declining. I suspect that were this true acute coronary syndrome we would see some change in the patient's cardiac enzymes given that the symptoms have been constant for 2 days. 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 Return parameters discussed. Disposition Clinical Impression: Chest pain Disposition: HOME SELF-CARE Condition: Fair Instructions (If sedation given, give patient instructions): Chest Pain (ED) Is patient prescribed a controlled substance at d/c from ED?: No Referrals: Kayla Lal DO [Primary Care Provider] - 1-2 days
[2020-02-14 01:22] LABS: Basophils # (A) 0.2 k/uL (0-0.2); Basophils % (A) 1 %; Eosinophils # (A) 0.4 k/uL (0-0.7); Eosinophils % (A) 3 %; HCT 42.5 % (39.0-53.0); HGB 14.2 gm/dL (13.0-17.5); Lymphocytes # (A) 4.3 k/uL (1.0-4.8); Lymphocytes % (A) 37 %; MCH 29.4 pg (25.0-35.0); MCHC 33.4 g/dL (31.0-37.0); MCV 88.2 fL (80.0-100.0); Mean Platelet Volume 7.4; Monocytes # (A) 0.4 k/uL (0-1.0); Monocytes % (A) 4 %; Neutrophils # (A) 6.3 k/uL (1.3-7.7); Neutrophils % (A) 54 %; Platelet Count 243 k/uL (150-450); RBC 4.82 m/uL (4.30-5.90); WBC 11.7 k/uL (3.8-10.6)
[2020-02-14 01:35] LABS: INR 0.9 (<1.2); Partial Thromboplastin Time 23.5 sec (22.0-30.0); Prothrombin Time 9.4 sec (9.0-12.0)
--- NOTE | 2020-02-14 01:36 | XR ---
EXAM: XR Chest, 2 Views CLINICAL HISTORY: ITS. REASON XR Reason: Chest Pain TECHNIQUE: Frontal and lateral views of the chest. COMPARISON: No relevant prior studies available. FINDINGS: Lungs: Unremarkable. No consolidation. Pleural space: Unremarkable. No pneumothorax. Heart: Unremarkable. No cardiomegaly. Mediastinum: Unremarkable. Bones/joints: Mild degenerative changes. IMPRESSION: No evidence of acute pulmonary disease
[2020-02-14 01:37] LABS: Calcium 9.2 mg/dL (8.4-10.2); Magnesium 1.6 mg/dL (1.6-2.3); Potassium 3.4 mmol/L (3.5-5.1); Total Bilirubin 0.9 mg/dL (0.2-1.3); Total Protein 7.3 g/dL (6.3-8.2)
[2020-02-14 02:01] LABS: D-Dimer 0.64 mg/L FEU (<0.60)
[2020-02-14] MEDS ORDERED: POTASSIUM CHLORIDE ER 20 MEQ TAB.ER PO STA (02:11)
[2020-02-14 02:22] VITALS: BP 132/76; PULSE 68
== END 2020-02-14 02:27 | disposition home or self-care (01) ==
LOC: EC 00:37
DX: R07.9 Chest pain, unspecified (principal); I10 Essential (primary) hypertension; E11.36 Type 2 diabetes mellitus with diabetic cataract; H26.9 Unspecified cataract; M19.071 Primary osteoarthritis, right ankle and foot; I25.2 Old myocardial infarction; Z79.82 Long term (current) use of aspirin; Z79.4 Long term (current) use of insulin; Z79.899 Other long term (current) drug therapy; Z88.8 Allergy status to other drugs, medicaments and biological substances; Z88.3 Allergy status to other anti-infective agents; Z96.60 Presence of unspecified orthopedic joint implant; Z95.5 Presence of coronary angioplasty implant and graft
CPT/HCPCS: 36415; 71046; 80053; 83735; 84484; 85025; 85379; 85610; 85730; 93005; 99285

== ENCOUNTER → 2021-01-30 | Outpatient (CLI) | payer MEDICARE ==
[2021-01-30 08:50] LABS: HCT 38.3 % (39.0-53.0); HGB 13.1 gm/dL (13.0-17.5); MCH 31.4 pg (25.0-35.0); MCHC 34.2 g/dL (31.0-37.0); MCV 91.7 fL (80.0-100.0); Mean Platelet Volume 8.1; Platelet Count 201 k/uL (150-450); RBC 4.17 m/uL (4.30-5.90); RDW 12.8 % (11.5-15.5); WBC 7.7 k/uL (3.8-10.6)
[2021-01-30 08:52] LABS: Potassium 4.3 mmol/L (3.5-5.1)
== END | disposition home or self-care (01) ==
LOC: PAT 07:43
PROVIDERS: ATTEND Internal Medicine Interventional Cardiology
DX: Z01.812 Encounter for preprocedural laboratory examination (principal); R07.9 Chest pain, unspecified
CPT/HCPCS: 36415; 80051; 82565; 84520; 85027

== ENCOUNTER 2021-01-31 06:10 | Day surgery (SDC) | payer MEDICARE ==
[~2021-01-31 06:10] MED LIST changes: -ACETAMINOPHEN TAB 500 MG TAB PO ONE; +ALPRAZolam 0.25 MG TAB PO PRN; +ALPRAZolam 0.5 MG TAB PO PRN; +ASPIRIN 325 MG TAB PO STA; -DEXAMETHASONE SOD PHOSPHATE 10 MG/ML 1 ML VIAL IV ONE; -HYDROmorphone 0.5 MG/0.5 ML SYRINGE IVP PRN; -MELOXICAM 7.5 MG TAB PO ONE; -MIDAZOLAM 2 MG/2 ML VIAL IV PRN; +NITROGLYCERIN SL TABS 0.4 MG TAB SUBLINGUAL PRN; -ONDANSETRON 4 MG/2 ML VIAL IVP ONE; +SODIUM CHLORIDE 0.9% 1,000 ML in EMPTY BAG 1 BAG IV SCH; -TRANEXAMIC ACID 1,000 MG in SODIUM CHLORIDE 0.9% 100 ML IVPB ONE; -ceFAZolin 3 GM in SODIUM CHLORIDE 0.9% 100 ML IVPB ONE
[2021-01-31] MEDS ORDERED: SODIUM CHLORIDE 0.9% 1,000 ML IV ONE (06:45)
[2021-01-31 06:55] LABS: Glucose,Whole Blood 149 mg/dL (75-99)
[2021-01-31] MEDS ORDERED: HEPARIN SODIUM,PORCINE 2,500 UNIT in SODIUM CHLORIDE 0.9% 250 ML IRRIGATION PRN (07:00)
[2021-01-31] MEDS ORDERED: HEPARIN SODIUM,PORCINE 10,000 UNIT in SODIUM CHLORIDE 0.9% 1,000 ML IRRIGATION PRN (07:00)
[2021-01-31 07:08] VITALS: TEMP 98.3
[2021-01-31] MEDS ORDERED: MIDAZOLAM 2 MG/2 ML VIAL IV ONE (07:52)
[2021-01-31] MEDS ORDERED: LIDOCAINE 1% INJ 10MG/ML (20 ML MDV) SQ ONE (07:55)
[2021-01-31] MEDS: VERAPAMIL SYRINGE (5 MG/10 ML) INTRAARTER ONE ×2 (07:57→08:36)
[2021-01-31] MEDS ORDERED: IOPAMIDOL-370 100ML BTL INJ ONE (08:37)
[2021-01-31] MEDS ORDERED: SODIUM CHLORIDE 0.9% 1,000 ML IV SCH (09:00)
[2021-01-31] MEDS ORDERED: CLOPIDOGREL 75 MG TAB PO STA (09:01)
[2021-01-31 12:02] VITALS: PULSE 59; RESP 156
--- NOTE | 2021-01-31 12:34 | CC ---
CARDIAC CATHETERIZATION REPORT CARDIAC CATHETERIZATION AND PTCA REPORT: PERFORMED BY: Dr. Vince Agosto. Moderate conscious sedation time was 42 minutes. The patient was administered Versed. Oxygen saturation, hemodynamics and EKG were monitored closely. CLINICAL INFORMATION: Mr. Vel Wyatt is a 75-year-old gentleman with a known history of CAD with multivessel PCI, hypertension, hyperlipidemia, and type 2 diabetes, who has been having symptoms suggestive of unstable angina. In 2017, I performed stenting of a mid circumflex branch after the 2 obtuse marginal branches. In October 2019, he had stenting of the mid LAD, which was a heavily calcified vessel. Orbital atherectomy and stenting were performed by Dr. Valera in my absence. The patient has been having symptoms suggestive of unstable angina. Therefore I advised cardiac cath and brought him for the procedure. Risks, benefits, options, rationale were explained. He understood all details and wished to proceed with the procedure. PROCEDURE NOTE: Under local anesthesia and strict aseptic precautions, a 6-Kittitian introducer was placed in the right radial artery. Using a JR4 and JL3.5 catheters, I performed coronary angiography. I noted that the LAD was totally occluded and there was filling by collaterals from the right coronary artery. I proceeded to perform PCI in the same setting. The patient tolerated procedure well. At the end of the procedure, the sheath was taken out and TR band applied as per protocol and he was sent to the room in stable condition. Saturation of the fingers of the right hand was 94%. CARDIAC CATHETERIZATION FINDINGS: RIGHT CORONARY ARTERY: Technically this is a dominant vessel which has no significant disease in the proximal and distal and midportion. There is moderate to heavy calcification. It bifurcates into PDA and PLV. The PDA is long, large distribution vessel with multiple areas of narrowing of anywhere from 70-80 percent in multiple beaded fashion all the way to the tip. This is now no different from what was seen before. PLV branch also has minor irregularities. There is a good-sized acute marginal branch that comes off, has no significant disease at this acute marginal branch provides rich collaterals to the distal LAD. There was good retrograde flow seen in almost filling the distal one third of the LAD coming from the acute marginal branch of RCA. LEFT MAIN CORONARY ARTERY: This is a short, patent vessel free of significant disease that bifurcates into LAD and circumflex. LEFT ANTERIOR DESCENDING CORONARY ARTERY: This vessel is totally occluded in the midportion at the site of stenting. There is a small septal and a small diagonal branch that comes off. There is no antegrade flow noted. Appears to be a chronic total occlusion. There is some ipsilateral collaterals that are filling the vessel. This appears to be a chronic total occlusion. LEFT POSTERIOR CIRCUMFLEX CORONARY ARTERY: This is technically a nondominant vessel that gives off 2 obtuse marginal branches which are free of significant disease and then there is a 50% narrowing after which the stented segment is noted which has no significant disease and then runs into the AV groove and a small distal posterolateral branch. The mid circumflex stent is patent with decent flow. LEFT VENTRICULOGRAM: Left ventriculogram was not performed. FINAL IMPRESSION: Left ventricular end-diastolic pressure was 8-10 mmHg without any gradient across aortic valve. The patient has a right dominant system. No significant disease in the proximal and mid and distal RCA, but the branches, specifically the PDA branch, has multiple diffuse areas of narrowing. PLV has mild disease. RCA fills the distal LAD by collaterals through an acute marginal branch. Left main is free of significant disease. The mid circumflex stent is patent with some mild disease proximal and distal to it. The 2 obtuse marginals are free of significant disease. LAD is totally occluded in the midportion at the site of stenting without any antegrade flow appears to be a chronic total occlusion. RECOMMENDATIONS: I recommended PCI explaining to the patient that this was going to be a difficult procedure given the chronic nature of the occlusion. I proceeded to perform the same setting. PCI PROCEDURE DETAILS: I used a JL3.5 guide catheter initially with a super cross catheter and a Whisper wire. With this combination, I kept going into the diagonal branch, but I could not cross the total occlusion. I switched over to a 45 degree super cross with a more curve on the whisper wire but I could not cross the total occlusion. After some attempts, I explained to the patient that I will send him either at [facility] or [facility] for QUALITY CONTROL OPERATOR intervention and we can do this electively. We will continue current medications and discharge the patient later on today. The sheath was taken out and TR band applied as per protocol. Saturation the fingers of the right hand was 94%. Patient tolerated procedure well without any complication, but this was unsuccessful PCI. I could not cross the vessel. MMODL / IJN: [id number] /
[2021-01-31 14:20] VITALS: BP 126/72
== END 2021-01-31 14:32 | disposition home or self-care (01) ==
LOC: CATHCVL 06:10
PROVIDERS: ATTEND Internal Medicine Interventional Cardiology
DX: I25.10 Atherosclerotic heart disease of native coronary artery without angina pectoris (principal); Z20.822 Contact with and (suspected) exposure to COVID-19
CPT/HCPCS: 93458; 92920; 87635; C1887 ×2; C1894; C1769; J2250; J2001; J1644; Q9967